=== PATIENT | female | born 1990 | race Caucasian/White ===

== ENCOUNTER → 2020-05-02 15:46 | Outpatient (CLI) | payer BC, SELFPAY ==
--- NOTE | ~2020-05-02 | US_ITS ---
EXAMINATION: US OB transvaginal DATE: 05/02/2020 16:12 INDICATION: . Uncertain dates. TECHNIQUE: Real-time transvaginal pelvic ultrasound was performed. COMPARISON: None. FINDINGS: The uterus measures 8.2 x 5.2 x 5.3 cm. There is an intrauterine gestational sac. A yolk sac is ident ified. The crown rump length measures 0.4 cm, which correlates with an estimated gestational a ge of 6 weeks and 0 day(s) (+/-) 4 day(s). heart motion is identified measuring 126 beats per m inute (bpm) by M-mode Doppler. The right ovary measures 2.6 x 2.2 x 1.3 cm. The left ovary measures 2 .8 x 1.5 x 2.3 cm. There is no free fluid in the pelvis. IMPRESSION: 1. Single living intrauterine gestation with estimated date of delivery of 12/26/2020. Reviewed, dictated and finalized at location A. IMPRESSION: 1. Single living intrauterine gestation with estimated date of delivery of 12/03.
== END ==
PROVIDERS: Visit Provider Nurse Practitioner
DX: Z36.87 Encounter for antenatal screening for uncertain dates (principal)
CPT/HCPCS: 76817

== ENCOUNTER → 2020-06-08 15:27 | Outpatient (CLI) | payer BC, SELFPAY ==
--- NOTE | ~2020-06-08 | XR_ITS ---
EXAMINATION: XR ankle RT min 3V DATE: 06/08/2020 15:57 INDICATION: Right ankle injury with pain, bruising and swelling TECHNIQUE: Anteroposterior, oblique, mortise, and lateral views of the right ankle were obtained. COMPARISON: None. FINDINGS: Alignment is normal. No fracture. Joint spaces are well maintained soft tissue swelling about the an kle more prominent medially. Likely ankle joint effusion. IMPRESSION: 1. No osseous abnormality. Reviewed, dictated and finalized at location A. T COMBINE DRIVER IMPRESSION: 1. No osseous abnormality.
== END ==
PROVIDERS: PCP Family Medicine; Visit Provider Nurse Practitioner Family
DX: S99.911A Unspecified injury of right ankle, initial encounter (principal); X58.XXXA Exposure to other specified factors, initial encounter
CPT/HCPCS: 73610

== ENCOUNTER → 2020-07-25 15:18 | Outpatient (CLI) | payer BC, SELFPAY ==
--- NOTE | ~2020-07-25 | US_ITS ---
EXAMINATION: US OB >= 14 weeks Fetus DATE: 07/25/2020 16:02 INDICATION: survey TECHNIQUE: Multiple obstetric sonographic images performed. FINDINGS: No prior studies for comparison. There is a single living fetus in variable presentation. The placenta is posterior without placenta previa. Placental margin is 3.9 cm to the cervix. Amniotic fluid volume is normal. cardiac activity and movement is noted with a heart rate of 158 beats per minute. The following anatomy was identified as normal: 4 chamber heart cord insertion kidneys urinary bladder stomach spine diaphragm ventricles cisterna magna cerebellum The ventricular outflow tracts are not adequately visualized. There is a possible two-vessel cord. Re commend attention to these structures on subsequent studies. The following biometric data were obtained: BPD: 42mm corresponds to gestational age 18 weeks 5 days. Head circumference: 158 mm corresponds to gestational age 18 weeks 5 days. Abdominal circumference: 128 mm corresponds to gestational age 18 weeks 2 days. Femur length: 27 mm corresponds to gestational age 18 weeks 2 days. Head circumference to abdominal circumference ratio: 1.23 (normal range for expected gestational age is 1.09-1.27). Estimated weight: 238 grams +/- 36 grams using Hadlock method. IMPRESSION: 1: Single living intrauterine with an estimated gestational age of 18weeks 0days by initial ultrasound measurements, with an EDC of 12/26/2020 in variable presentation. 2. survey limited for evaluation of outflow tracts. Possible two-vessel cord. Recommend attent ion to these structures on subsequent study. Otherwise, unremarkable survey.. 3: Low-lying posterior placenta measures 3.9 cm to the cervix. Reviewed, dictated and finalized at location A. ING CONSULTANT IMPRESSION: 1: Single living intrauterine with an estimated gestational age of 18 weeks 0days by initial ultrasound measurements, with an EDC of 12/26/2020 in angus iable presentation. 2. survey limited for evaluation of outflow tracts. Possible two-vessel cord. Recommend attention to these structures on subsequent study. Otherwise, u nremarkable survey.. 3: Low-lying posterior placenta measures 3.9 cm to the cervix.
== END ==
PROVIDERS: PCP Family Medicine; Visit Provider Obstetrics & Gynecology Gynecology
DX: O44.42 Low lying placenta NOS or without hemorrhage, second trimester (principal); Z3A.18 18 weeks gestation of pregnancy
CPT/HCPCS: 76805

== ENCOUNTER 2020-11-23 14:28 | Outpatient (RCR) | payer BC, SELFPAY ==
[2020-11-23 15:24] VITALS: BP 130/75; PULSE 70
== END 2020-12-15 10:21 | disposition home or self-care (01) ==
LOC: ANHOBOP 14:28
PROVIDERS: PCP Family Medicine; Visit Provider Obstetrics & Gynecology Gynecology
DX: O36.8930 Maternal care for other specified fetal problems, third trimester, not applicable or unspecified (principal); Q27.0 Congenital absence and hypoplasia of umbilical artery; Z3A.35 35 weeks gestation of pregnancy
CPT/HCPCS: 59025

== ENCOUNTER 2020-12-14 15:43 | Observation (INO) | payer BC, SELFPAY ==
[2020-12-14 17:38] LABS: Basophils Percent Auto 0.2 % (0.2-1.2); Eosinophils Absolute Auto 0.1 K/mm3 (0-0.3); Eosinophils Percent Auto 0.7 % (0-4.4); Hematocrit 37.5 % (37.0-47.0); Hemoglobin 12.7 g/dL (12.0-15.0); Immature Granulocyte Absolute 0.05 K/mm3 (0.00-0.031); Immature Granulocyte Percent A 0.5 % (0-0.5); Lymphocytes Absolute Auto 1.02 K/mm3 (0.9-3.2); Lymphocytes Percent Auto 11.2 % (18.3-44.2); Mean Corpuscular HGB Conc 33.9 g/dl (32-36); Mean Corpuscular Hemoglobin 30.5 pg (26-34); Mean Corpuscular Volume 89.9 fl (80-100); Mean Platelet Volume 11.7 fl (7.4-10.4); Monocytes Absolute Auto 0.7 K/mm3 (0.1-0.6); Monocytes Percent Auto 7.2 % (2.6-8.5); Neutrophils Absolute Auto 7.3 K/mm3 (1.3-6.7); Neutrophils Percent Auto 80.2 % (45.5-73.1); Platelet Count Result 178 k/mm3 (150-375); Red Blood Count 4.17 M/mm3 (4.2-5.4); Red Cell Distribution Width 12.8 % (11.5-14.5); White Blood Count 9.1 K/mm3 (4.5-10.0)
[2020-12-14 17:45] VITALS: BP 138/87; PULSE 78
[2020-12-14 17:48] LABS: Alanine Aminotransferase 17 U/L (4-35); Albumin Level 3.6 g/dL (3.5-5.1); Alkaline Phosphatase 130 U/L (38-126); Anion Gap 3 mmol/L (8-16); Aspartate Amino Transferase 25 U/L (14-36); Bilirubin,Total 0.1 mg/dL (0.2-1.3); Blood Urea Nitrogen 13 mg/dL (7-17); Calcium 9.7 mg/dL (8.4-10.2); Carbon Dioxide 23 mmol/L (22-30); Chloride 109 mmol/L (98-107); Estimated Glomerular Filt Rate > 60; Glucose 87 mg/dL (65-105); Potassium 4.2 mmol/L (3.4-5.0); Sodium 135 mmol/L (137-145); Uric Acid 5.7 mg/dL (2.5-7.5)
[2020-12-14 18:00] VITALS: BP 143/85; PULSE 69
--- NOTE | 2020-12-18 08:35 | PM.OBTRLD ---
OB - Triage/Final Diagnosis Visit Information Reason for evaluation: threatened labor Comments/Additional reasons for admission: I have assessed the risk for this patient, Meenakshi Crews, and determined that she would benefit from observation care. Evaluation Laboratory results: Laboratory Tests 12/14/20 12/14/20 17:31 17:31 WBC 9.1 RBC 4.17 L Hgb 12.7 Hct 37.5 MCV 89.9 MCH 30.5 MCHC 33.9 RDW 12.8 Plt Count 178 MPV 11.7 H Immature Gran % (Auto) 0.5 Neut % (Auto) 80.2 H Lymph % (Auto) 11.2 L [place] % (Auto) 7.2 Eos % (Auto) 0.7 Baso % (Auto) 0.2 Lymph # (Auto) 1.02 [place] # (Auto) 0.7 H Eos # (Auto) 0.1 Baso # (Auto) 0.0 Abs Immat Gran (auto) 0.05 H Absolute Neuts (auto) 7.3 H Absolute Nucleated RBC 0.0 Nucleated RBC % 0.0 Sodium 135 L Potassium 4.2 Chloride 109 H Carbon Dioxide 23 Anion Gap 3 L BUN 13 Creatinine 0.70 Estim Creat Clear Calc Not Reportable Estimated GFR > 60 Glucose 87 Uric Acid 5.7 Calcium 9.7 Total Bilirubin 0.1 L AST 25 ALT 17 Alkaline Phosphatase 130 H Total Protein 7.0 Albumin 3.6
== END 2020-12-14 18:20 | disposition home or self-care (01) ==
PROVIDERS: Admitting Provider Obstetrics & Gynecology Gynecology; PCP Family Medicine; Visit Provider Obstetrics & Gynecology Gynecology
DX: O47.9 False labor, unspecified (principal); Z3A.00 Weeks of gestation of pregnancy not specified
CPT/HCPCS: 36415; 80053; 84550; 85025; G0378; G0379

== ENCOUNTER 2020-12-15 02:50 | Inpatient (IN) | payer BC, SELFPAY ==
[2020-12-15] VITALS (157 sets, daily range): BP systolic 112–171; BP diastolic 72–119; PULSE 65–190; RESP 16–18; TEMP 36.6–37.2; O2SAT 96–100; BMI 37.3
[2020-12-15 03:47] LABS: Basophils Percent Auto 0.1 % (0.2-1.2); Eosinophils Absolute Auto 0.1 K/mm3 (0-0.3); Eosinophils Percent Auto 0.4 % (0-4.4); Hematocrit 40.4 % (37.0-47.0); Hemoglobin 13.7 g/dL (12.0-15.0); Immature Granulocyte Absolute 0.06 K/mm3 (0.00-0.031); Immature Granulocyte Percent A 0.5 % (0-0.5); Lymphocytes Absolute Auto 0.97 K/mm3 (0.9-3.2); Lymphocytes Percent Auto 7.9 % (18.3-44.2); Mean Corpuscular HGB Conc 33.9 g/dl (32-36); Mean Corpuscular Hemoglobin 30.6 pg (26-34); Mean Corpuscular Volume 90.4 fl (80-100); Mean Platelet Volume 12.5 fl (7.4-10.4); Monocytes Absolute Auto 0.7 K/mm3 (0.1-0.6); Neutrophils Absolute Auto 10.4 K/mm3 (1.3-6.7); Neutrophils Percent Auto 85.1 % (45.5-73.1); Platelet Count Result 183 k/mm3 (150-375); Red Blood Count 4.47 M/mm3 (4.2-5.4); Red Cell Distribution Width 12.7 % (11.5-14.5); White Blood Count 12.2 K/mm3 (4.5-10.0)
--- NOTE | 2020-12-15 04:15 | LDADM ---
This patient, Meenakshi Crews, was admitted to Labor/Delivery/Recovery 105 on 12/15/20 at 02:50. Plans for labor, pain management and were discussed with patient. Patient/family oriented to hospital policies and general routines including ID bracelet, bed and alarms, visiting hours, pain management, procedures, bathroom and other care routines, personal items, smoking policy, room service/diet and guest tray routines, infant security routines, and visiting hours. Patient/Family are encouraged to report perceived risks to care and to ask questions if they do not understand what they are told or what they should do. See OBIX for further documentation.
--- NOTE | 2020-12-15 04:20 | WPDANESEPP ---
Anes - Eval Pre Procedure Procedure: Labor epidural Date/Time: 12/15/20 04:20 Surgeon: deborah Preop Diagnosis: pain during labor Pre Op Diagnosis: Contractions Patient Data Age: 30 Gender: F Height: Weight: Allergies Allergy/AdvReac Type Severity Reaction Status Date / Time amoxicillin Allergy Unknown Hives Verified 11/28/20 14:30 Home Medications Medication Instructions Recorded Confirmed Type buspirone 10 mg tablet 10 mg PO BID #60 tablet 09/24/20 12/15/20 Rx Gummies 2 tablet PO HS 11/23/20 12/15/20 History ergocalciferol (vitamin D2) 50,000 unit PO WEEKLY 11/23/20 12/15/20 History Laboratory Tests 12/15/20 12/15/20 03:41 03:41 WBC 12.2 K/mm3 H K/mm3 (4.5-10.0) RBC 4.47 M/mm3 M/mm3 (4.2-5.4) Hgb 13.7 g/dL g/dL (12.0-15.0) Hct 40.4 % % (37.0-47.0) MCV 90.4 fl fl (80-100) MCH 30.6 pg pg (26-34) MCHC 33.9 g/dl g/dl (32-36) RDW 12.7 % % (11.5-14.5) Plt Count 183 k/mm3 k/mm3 (150-375) MPV 12.5 fl H fl (7.4-10.4) Immature Gran % (Auto) 0.5 % % (0-0.5) Neut % (Auto) 85.1 % H % (45.5-73.1) Lymph % (Auto) 7.9 % L % (18.3-44.2) [place] % (Auto) 6.0 % % (2.6-8.5) Eos % (Auto) 0.4 % % (0-4.4) Baso % (Auto) 0.1 % L % (0.2-1.2) Lymph # (Auto) 0.97 K/mm3 K/mm3 (0.9-3.2) [place] # (Auto) 0.7 K/mm3 H K/mm3 (0.1-0.6) Eos # (Auto) 0.1 K/mm3 K/mm3 (0-0.3) Baso # (Auto) 0.0 K/mm3 K/mm3 (0.0-0.1) Abs Immat Gran (auto) 0.06 K/mm3 H K/mm3 (0.00-0.031) Absolute Neuts (auto) 10.4 K/mm3 H K/mm3 (1.3-6.7) Absolute Nucleated RBC 0.0 K/mm3 K/mm3 (0.0-0.012) Nucleated RBC % 0.0 % % (0.0-0.2) RPR Pending Patient hx anesthesia problems: none Family hx anesthesia problems: none PMFSH Family History Family History (Updated 11/28/20 @ 14:32 by Loida Warren RN) Father Hypertension Social History Social History Smoking status: Never smoker Alcohol intake: current Substance use: never Gender identity (if verbalized by the patient): Female Spiritual care concerns: No Exam Day of Procedure 12/15/20 04:20
--- NOTE | 2020-12-15 09:29 | WPDOBADMIT ---
Obstetrics - Admit Note Admission Note: AROM clear fluid 5-/-1 vertex @0741. record reviewed. No pertinent additions to the history and/or any subsequent changes in the physical findings that are not consistent with the expected course of the were found. Additions to the history and/or subsequent changes in the physical findings follow. None.
[2020-12-15 12:33] LABS: Rapid Plasma Reagin Non-Reactive (NonReactive)
--- NOTE | 2020-12-15 12:35 | PM.OBPRVD ---
OB - Delivery Note Procedure Delivery date: 12/15/20 Procedure: Intrapartal events: None Delivery augmentation: rupture of membranes Delivery monitor: external FHT and external uterine Route of delivery: Laceration Description: None Quantitative Blood Loss (ml): 160 Anesthesia type: Epidural Disposition: floor [place] Baby Date of : 12/15/20 Time of : 12:21 Weeks of gestation at delivery: 38 Infant gender: Male Weight (pounds): 6 Weight (ounces): 9 presentation: vertex position: Left Occiput Posterior Placenta delivery description: Spontaneous cord vessel description: 3 Vessels, Nuchal Cord, Clamped/Cut and Around Body x1 score one minute: 7 score five minutes: 9
[2020-12-15] MEDS: OXYTOCIN 30 UNITS/NS 500 ML 30 UNITS/500 ML BAG 125 UNITS IV CONT (13:03)
[2020-12-15] MEDS: IBUPROFEN 600 MG TABLET PO (13:41)
[2020-12-15] MEDS: busPIRone HCL 10 MG TABLET PO ×2 (13:46→20:30)
[2020-12-15] MEDS: ACETAMINOPHEN 325 MG TABLET 650 MG PO (17:31)
[2020-12-15] MEDS: DOCUSATE SODIUM 100 MG CAPSULE PO (17:32)
[2020-12-16] MEDS: IBUPROFEN 600 MG TABLET PO (03:58)
[2020-12-16 04:00] VITALS: BP 134/85; PULSE 73; RESP 18; TEMP 36.4
[2020-12-16 05:56] LABS: Hematocrit 32.4 % (37.0-47.0); Hemoglobin 10.9 g/dL (12.0-15.0)
[2020-12-16 08:30] VITALS: BP 123/76; PULSE 65; RESP 16; TEMP 36.6
--- NOTE | 2020-12-16 10:00 | PC.NURSE ---
Patient viewed the discharge video Mother & Baby Care, The First Two Weeks . Patient was given the opportunity and encouraged to ask questions. Patient verbalized understanding of information shared and has been given the mother/baby guide for home reference.
--- NOTE | 2020-12-16 10:09 | WPDANLDPN2 ---
Anes-Prog Note L&D Date/Time: 12/16/20 10:09 Comfortable throughout: labor and delivery Neuraxial method: epidural Epidural/Spinal procedure site: clean & non-tender Neuro status: Neuro function grossly intact. Cardiovascular status: normal Respiratory status: normal Airway patency: baseline Mental status: baseline Post-Op hydration status: normal Vital Signs: Last Vital Signs Temp 36.6 C 12/16/20 08:30 Pulse 65 12/16/20 08:30 Resp 16 12/16/20 08:30 BP 123/76 12/16/20 08:30 Pulse Ox 99 12/15/20 15:30 Pain score (VAS): 08/13 I/O: Intake & Output 12/15/20 12/16/20 12/16/20 23:59 07:59 15:59 Intake Total 1300 600 Output Total 1000 450 Balance 300 150 Post-procedural complaints: none Patient feedback: Patient satisfied with anesthetic care.
--- NOTE | 2020-12-16 10:46 | PM.OBPNVD ---
OB - PN: Subj Subjective Date/time seen: 12/16/20 10:46 Patient comments: no complaints and pain well controlled baby status: doing well and bottle feeding well OB - PN: Obj Data Labs CBC & Chem 7: 12/16/20 04:04 Labs: Laboratory Results - last 24 hr 12/15/20 12/16/20 03:41 04:04 Hgb 10.9 L Hct 32.4 L RPR Non-reactive OB - PN A/P Plan day: 1 Plan: routine care, discharge home, follow up 6 weeks and other (Plans Loestrin 24 for bc) Time Spent With Patient Time: Total time spent is greater than 50% in coordination of care (as documented) at patient's floor/unit and/or counseling patient: Exam : Bimanual exam- vagina & uterus: other (Uterus firm, nt @U)
--- NOTE | 2020-12-16 10:48 | PM.OBDSVD ---
DS: Admitting Diagnosis Admitting Diagnosis Admitting Diagnosis: labor at term DS: Discharge Diagnosis Discharge Diagnosis (1) (normal spontaneous vaginal delivery): Code(s): O80 - Encounter for full-term uncomplicated delivery Status: Acute OB - DS: Summary OB Procedures : Ultrasound OB Procedures Intrapartum: Spontaneous Vag Delivery OB Procedures: : None Peripartum Data Infant Delivery Method: Natural Vaginal complications: none Status at Discharge Functional status at discharge: independent ambulation Overall status at discharge: patient is progressing back to baseline Time Spent with Patient Time attestation: Total time spent providing and/or coordinating discharge services: DS: Data Data Completed and Pending Labs on day of discharge: Labs from last 24 hours 12/16/20 12/15/20 04:04 03:41 Hgb 10.9 L Hct 32.4 L RPR Non-reactive Discharge Plan Discharge Attending physician on discharge: Gela Ro Discharging Clinician: Gela Ro Anticipated Discharge Date/Time: 12/16/20 10:48 Patient Disposition: Home, Self-Care Activity: may shower and pelvic rest Diet: regular Patient Instructions: Antibiotic Form Stand Alone Forms: General Discharge Information Follow-up/Referrals: Gela Ro MD [Physician] - 6 Weeks Discharge Medications: New norethindrone-e.estradiol-iron [Minastrin 24 Fe] 1 mg-20 mcg(24) /75 mg (4) tablet,chewable 1 tablet PO DAILY Qty: 3 RF: 1 Continued ergocalciferol (vitamin D2) 1,250 mcg (50,000 unit) capsule 50,000 unit PO WEEKLY RF: 0 buspirone 10 mg tablet 10 mg PO BID Qty: 60 RF: 3 Discontinued Gummies 400 mcg-35 mg- 25 mg-5 mg Tablet,Chewable 2 tablet PO HS RF: 0 Date of admission: 12/15/20 02:50 Primary Care Provider: Ishan Mims Admitting Provider: Gela Ro Attending physician on admission: Gela Ro Condition: Stable
[2020-12-18 10:13] VITALS: BP 148/88; PULSE 92; RESP 20; TEMP 37.1; O2SAT 100
== END 2020-12-16 13:33 | disposition home or self-care (01) | DRG 807 ==
LOC: ANHLDR 03:42 → ANHOB2 14:53
PROVIDERS: Admitting Provider Obstetrics & Gynecology; PCP Family Medicine; Visit Provider Obstetrics & Gynecology Gynecology
DX: O69.81X0 Labor and delivery complicated by cord around neck, without compression, not applicable or unspecified (principal); Z37.0 Single live birth; Z3A.38 38 weeks gestation of pregnancy
CPT/HCPCS: 36415; 80053; 84550; 85014; 85018; 85025; 86592; 86850; 86900; 86901; A9270; G0378; G0379; J2590; J2795

== ENCOUNTER 2021-01-26 15:37 | Outpatient (CLI) | payer BC, SELFPAY ==
--- NOTE | ~2021-01-26 | US_ITS ---
EXAMINATION: US venous doppler UE DATE: 01/26/2021 16:42 INDICATION: Right upper limb pain. TECHNIQUE: Grayscale ultrasound images without and with compression and Doppler ultrasound images of the bilateral upper extremity veins were obtained. COMPARISON: None. FINDINGS: The visualized portions of the right internal jugular vein, subclavian vein, axillary vein, brachial veins, basilic vein, radial vein, and ulnar vein are patent. There is thrombus in right cephalic vein . The visualized portions of the left internal jugular vein, subclavian vein, axillary vein, brachial v eins, basilic vein, cephalic vein, radial vein, and ulnar vein are patent. IMPRESSION: 1. No deep venous thrombosis. 2. Thrombus in right cephalic vein, which is a superficial vein. Reviewed, dictated and finalized at location A.
== END 2021-01-26 15:38 | disposition home or self-care (01) ==
LOC: ANHIMG 15:38
PROVIDERS: PCP Family Medicine; Visit Provider Physician Assistant Medical
DX: M79.601 Pain in right arm (principal); I82.611 Acute embolism and thrombosis of superficial veins of right upper extremity
CPT/HCPCS: 93970

== ENCOUNTER 2021-07-03 06:49 | Emergency (ER) | payer BC, SELFPAY ==
--- NOTE | ~2021-07-03 | XR_ITS ---
EXAMINATION: XR chest 2V DATE: 07/03/2021 07:15 INDICATION: Left-sided chest pain with breathing TECHNIQUE: PA and lateral views of the chest were obtained. COMPARISON: None FINDINGS: The lungs are clear with no focal airspace opacities, pulmonary edema, pleural effusion or pneumothor ax. The cardiomediastinal silhouette is normal. Mild thoracic dextrocurvature with mild spondylosis. IMPRESSION: 1. No acute cardiopulmonary disease. Reviewed, dictated and finalized at location A. ITECTURE TECHNICIAN
--- NOTE | ~2021-07-03 | CT_ITS ---
EXAMINATION: CTA chest PE protocol EXAM DATE: 07/03/2021 09:25 INDICATION: Chest pain, elevated d dimer. TECHNIQUE: Spiral CTA of the chest (pulmonary arteries) was performed with 100 cc Omnipaque 350 intr avenous contrast injection. Images were acquired during the pulmonary arterial phase. Coronal maxi mum intensity projection 3D-reconstructions were created by the technologist on dedicated workstation . Axial, coronal and sagittal reformatted images were reviewed. The dose-length product (DLP) for t his examination was 448.85 mGy-cm. The exposure was tailored according to patient size (auto mA exp osure control), and iterative reconstruction (ASIR) was used as additional dose reduction technique. There is no prior study for comparison. FINDINGS: Pulmonary arteries are well opacified and without intraluminal filling defects. No thorac ic aortic dissection. The lungs are clear. There are no pleural or pericardial effusions. Trache obronchial tree is patent. There is no mediastinal, hilar or axillary lymphadenopathy. There is n o pneumothorax. Heart normal in size. No evidence of coronary arterial calcification. Upper abdo men is unremarkable. There is thoracic spondylosis without osteoblastic or osteolytic lesions ident ified. IMPRESSION: No acute cardiac pulmonary findings. Reviewed, dictated and finalized at location A. 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
[2021-07-03 06:56] VITALS: BP 155/100; PULSE 86; RESP 24; TEMP 36.2; O2SAT 100
--- NOTE | 2021-07-03 06:59 | ECG_ITS ---
Measurements Intervals [place] Rate: 83 P: 52 ID: [id number] QRS: 60 QRSD: 97 T: 39 QT: 374 QTc: 440 Interpretive Statements SINUS RHYTHM DELAYED PRECORDIAL R/S TRANSITION BORDERLINE ST-T WAVE ABNORMALITY- INFERIOR LEADS BASELINE ARTIFACT- I, II, AVR, AVF BORDERLINE ECG Electronically Signed On 07-03-2021 7:47:55 CONTROL OPERATOR FLOW COAT by Houston Acevedo D.O.
[2021-07-03 07:08] LABS: Basophils Percent Auto 0.2 % (0.2-1.2); Eosinophils Absolute Auto 0.1 K/mm3 (0-0.3); Eosinophils Percent Auto 2.5 % (0-4.4); Hematocrit 42.6 % (37.0-47.0); Hemoglobin 14.6 g/dL (12.0-15.0); Immature Granulocyte Absolute 0.03 K/mm3 (0.00-0.031); Immature Granulocyte Percent A 0.6 % (0-0.5); Lymphocytes Absolute Auto 1.32 K/mm3 (0.9-3.2); Lymphocytes Percent Auto 25.7 % (18.3-44.2); Mean Corpuscular HGB Conc 34.3 g/dl (32-36); Mean Corpuscular Volume 90.4 fl (80-100); Mean Platelet Volume 10.1 fl (7.4-10.4); Monocytes Absolute Auto 0.5 K/mm3 (0.1-0.6); Monocytes Percent Auto 9.7 % (2.6-8.5); Neutrophils Absolute Auto 3.1 K/mm3 (1.3-6.7); Neutrophils Percent Auto 61.3 % (45.5-73.1); Platelet Count Result 239 k/mm3 (150-375); Red Blood Count 4.71 M/mm3 (4.2-5.4); Red Cell Distribution Width 12.3 % (11.5-14.5); White Blood Count 5.1 K/mm3 (4.5-10.0)
[2021-07-03 07:22] LABS: Alanine Aminotransferase 25 U/L (4-35); Albumin Level 4.6 g/dL (3.5-5.1); Alkaline Phosphatase 42 U/L (38-126); Anion Gap 10 mmol/L (8-16); Aspartate Amino Transferase 29 U/L (14-36); Bilirubin,Total 0.5 mg/dL (0.2-1.3); Blood Urea Nitrogen 16 mg/dL (7-17); Calcium 9.1 mg/dL (8.4-10.2); Carbon Dioxide 24 mmol/L (22-30); Chloride 105 mmol/L (98-107); Estimated CRCL calculation 91 ml/min; Estimated Glomerular Filt Rate > 60; Glucose 73 mg/dL (65-110); Lipase 147 U/L (23-300); Potassium 3.7 mmol/L (3.4-5.0); Sodium 139 mmol/L (137-145)
[2021-07-03 07:33] LABS: Troponin I < 0.012 ng/mL (0.000-0.034)
[2021-07-03 07:57] LABS: INR 0.9; Partial Thromboplastin Time 24.1 SECONDS (22.3-36.8); Prothrombin Time 11.8 Seconds (11.1-14.7)
--- NOTE | 2021-07-03 08:13 | ED.GENADULT ---
HPI - General Adult General Chief complaint: Chest Pain Stated complaint: chest pain Time Seen by Provider: 07/03/21 07:09 Source: patient History of Present Illness HPI narrative: Patient is a 30 y/o female complaining of left sided chest pain starting yesterday. She describes her pain as a pressure and squeezing sensation. She rates her pain as 4/10. There is no pain radiation. She took Aspirin this morning, which did not help. She has no cough, fever or SOB. Related Data Home Medications Medication Instructions Recorded Confirmed ergocalciferol (vitamin D2) 50,000 unit PO WEEKLY 11/23/20 04/19/21 Allergies Allergy/AdvReac Type Severity Reaction Status Date / Time amoxicillin Allergy Unknown Hives Verified 07/03/21 06:59 Review of Systems Constitutional: Constitutional: Denies chills, Denies fever(s), Denies headache(s) and Denies weakness Eyes: Eyes: Denies blurry vision ENT: Denies headache(s) and Denies neck pain Cardiovascular: Cardiovascular: Denies chest pain and Denies dyspnea Respiratory: Respiratory: Denies cough and Denies dyspnea Gastrointestinal: Gastrointestinal: Denies abdominal pain, Denies diarrhea, Denies nausea and Denies vomiting Genitourinary: Genitourinary: Denies hematuria and Denies dysuria Musculoskeletal: Musculoskeletal: Denies back pain and Denies neck pain Neurologic: Denies headache(s) and Denies weakness PMFSH Past Medical History Medical History BMI 33.0-33.9,adult Family History Family History Father Hypertension Mother No problems noted. 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 Gender identity (if verbalized by the patient): Female Sexual Orientation (if Verbalized by the Patient): Straight or Heterosexual Spiritual care concerns: No Agree to blood products: Yes Exam Const: General: no acute distress and well developed Orientation/consciousness: oriented to person, oriented to place, oriented to time and patient oriented x3 HENMT: Head: normocephalic Ears: external ears normal General nose exam: Normal external nose present Eyes: General: appearance normal, both eyes and all related structures Conjunctivae: conjunctivae normal Neck: Neck: normal visual inspection and full ROM Chest: Chest palpation & inspection: normal inspection of the chest and no tenderness Resp: Effort & Inspection: normal respiratory effort Auscultation: clear to auscultation bilaterally Cardio: Rate: regular rate Rhythm: regular rhythm GI: GI Palp: No abdominal tenderness and Yes Soft to palpation Skin: General skin exam: normal color and turgor normal Neuro: General: oriented to person, oriented to place, oriented to time and patient oriented x3 Cognition (Neuro): normal cognition Extrem: General: normal to inspection, full ROM and no pedal edema Psych: Appearance: grossly normal Mental Status: mental status grossly normal Affect: normal affect Course Consultations Consultation #1: Discussed with Dr. Wilkinson, who agrees with plan for discharge and will follow. Date: 07/03/21 Time: 11:18 Vital Signs Vital signs: Vital Signs Temperature 36.2 C L 07/03/21 06:56 Pulse Rate 86 07/03/21 06:56 Respiratory Rate 24 H 07/03/21 06:56 Blood Pressure 155/100 H 07/03/21 06:56 Pulse Oximetry 100 07/03/21 06:56 Temperature 36.2 C L 07/03/21 06:56 Pulse Rate 86 07/03/21 11:38 Respiratory Rate 17 07/03/21 11:38 Blood Pressure 146/96 H 07/03/21 11:38 Pulse Oximetry 100 07/03/21 11:38 Med
[2021-07-03 08:45] LABS: D Dimer 1.56 ug/mL (<0.48)
[2021-07-03 09:10] LABS: Add Urine Microscopic? YES; Appearance Urine Cloudy (Clear); Bacteria Urine Trace /hpf; Bilirubin Urine Negative (Negative); Blood Urine 1+ (Negative); Color Urine Yellow (Yellow); Glucose Urine UA Negative (Negative); Ketones Urine Negative (Negative); Leukocyte Esterase Ur 2+ LEU/UL (Negative); Mucus Urine Few /lpf; Nitrate Urine Negative (Negative); Protein Urine Negative (Negative); Specific Grav Ur 1.026 (1.001-1.035); Squamous Epithelial Cell Urine Many /hpf (Few); Urobilinogen Urine Negative mg/dL (<2.0)
[2021-07-03 10:33] LABS: Troponin I < 0.012 ng/mL (0.000-0.034)
[2021-07-03 11:38] VITALS: BP 146/96; PULSE 86; RESP 17; O2SAT 100
== END 2021-07-03 11:47 | disposition home or self-care (01) ==
PROVIDERS: Emergency Medicine; Emergency Provider Emergency Medicine; PCP Family Medicine
DX: R07.9 Chest pain, unspecified (principal)
CPT/HCPCS: 36415; 71046; 71275; 80053; 81001; 81025; 83690; 84484; 85025; 85380; 85610; 85730; 87086; 87088; 93005; 99284; Q9967

== ENCOUNTER 2024-09-30 02:48 | Day surgery (SDC) | payer BC, SELFPAY ==
[2024-09-21 12:11] VITALS: BMI 22.7
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
--- OUTSIDE RECORDS SUMMARY | 2024-09-30 02:51 | XMS_ITS | Clinical Summary ---
Author Organization [facility] Address [address] [place] [address] Phone Care Team Providers Care Poultry Farm Manager Name Role Phone Unavailable Primary Care Provider Unavailabl e Social History Tobacco Use Types Packs/Day Years Used Date Smoking Tobacco: Never Assessed Comments Unknown Sex and Gender Information Value Date Recorded Sex Assigned at Not on file Legal Sex Female 11:20 AM DESK MAKER Gender Identity Not on file Sexual Orientation Not on file Plan of Treatment Health Maintenance Due Date Last Done Comments DTAP/TDAP/TD VACCINES (1 - Tdap) 11/04/2007 HEPATITIS B VACCINES (1 of 3 - 19+ 3-dose series) 11/04/2007 CERVICAL CANCER SCREENING 05/22/2020 05/22/2017 INFLUENZA VACCINE (#1) 2024 HPV VACCINES Aged Out No longer eligi ble based on patient's age to complete this topic PNEUMOCOCCAL VACCINE 0-64 YEARS Aged Out No longer eligible based on patient's age to complete this topic Insurance [facility] BLUE ACCESS/TRUE BLUE PPO
--- OUTSIDE RECORDS SUMMARY | 2024-09-30 02:51 | XMS_ITS | Clinical Summary ---
Author Organization [facility] Address [address] [place] [address] Care Team Providers Care Tableau Analyst Name Role Phone Ishan Mims MD Primary Care Provider [phone] Source Comments [facility],non-owned Affiliates and Associated Physician Practices is amultiple site organization consisting of ambulatory clinics and hospital sitesin [place], [place], [place] and [place]. This disclosure is being madepursuant to the Care Everywhere program and may not contain all information available regarding this patient. Last updated 18.[facility] Allergies Active Allergy Reactions Criticality Noted Date Comments Amoxicillin Urticaria Medium 04/13/2018 Medications * Be aware that medications may not be up to date on this document. Alwaysverify current medications with the patient. Medication Sig Dispensed Refills Start Date End Date Status BusPIRone HCl (BUSPAR PO) Active Active Problems No known active problems Social History Tobacco Use Types Packs/Day Years Used Date Smoking Tobacco: Never Smokeless Tobacco: Never Alcohol Use Standard Drinks/Week Comments Yes 0 (1 standard drink = 0.6 oz pur e alcohol) occasional Sex and Gender Information Value Date Recorded Sex Assigned at Not on file Gender Identity Female 04/13/2018 7:02 PM CDT Sexual Orientation Not on file Last Filed Vital Signs Vital Sign Reading Time Taken Comments Blood Pressure 118/72 06/28/2019 3:44 PM SOFT WORK WRAPPER EXAMINER Pulse 102 06/28/2019 3:44 PM SOFT WORK WRAPPER EXAMINER Temperature 37 C (98.6 F) 06/28/2019 3:44 PM SOFT WORK WRAPPER EXAMINER Respiratory Rate 16 06/28/2019 3:44 PM SOFT WORK WRAPPER EXAMINER Oxygen Saturation 98% 06/28/2019 3:44 PM SOFT WORK WRAPPER EXAMINER Inhaled Oxygen Concentration - - Weight 72.6 kg (160 lb) 06/28/2019 3:44 PM SOFT WORK WRAPPER EXAMINER Height 167.6 cm (5' 6 ) 06/28/2019 3:44 PM SOFT WORK WRAPPER EXAMINER Body Mass Index 25.82 06/28/2019 3:44 PM SOFT WORK WRAPPER EXAMINER Plan of Treatment Health Maintenance Due Date Last Done Comments PAP SMEAR 1988 HIV SCREENING 11/04/2003 HEPATITIS C SCREENING 10/30/2006 DTAP/TDAP/TD VACCINES (1 - Tdap) 11/04/2007 HEPATITIS B VACCINE (1 of 3 - 19+ 3-dose series) 11/04/2007 COVID-19 VACCINE (1 - 2023-2 5 season) 2024 INFLUENZA VACCINE (#1) 2024 DEPRESSION SCREENING 08/04/2024 ZOSTER VACCINE (1 of 2) 2038 HIB VACCINE Aged Out No longer eligi ble based on patient's age to complete this topic HPV VACCINE Aged Out No longer eligi ble based on patient's age to complete this topic MENINGOCOCCAL (Group B) VACCINE Aged Out No longer eligible based on patient's age to complete this topic MENINGOCOCCAL VACCINE Aged Out No angel grzegorz eligible based on patient's age to complete this topic PNEUMOCOCCAL VACCINE Aged Out No long er eligible based on patient's age to complete this topic Care Teams Tableau Analyst Relationship Specialty Start Date End Date Ishan Mims MD [address] [place] [address] PCP - General Family Medicine 04/13/18
--- OUTSIDE RECORDS SUMMARY | 2024-09-30 02:51 | XMS_ITS | Referral Summary ---
Author Organization [facility] Address [address] [place] [address] Care Team Providers Care Protective Services Social Worker Name Role Phone Ishan Mims MD Primary Care Provider [phone] Source Comments [facility],non-owned Affiliates and Associated Physician Practices is amultiple site organization consisting of ambulatory clinics and hospital sitesin [place], [place], [place] and [place]. This disclosure is being madepursuant to the Care Everywhere program and may not contain all information available regarding this patient. Last updated 18.[facility] Allergies Active Allergy Reactions Criticality Noted Date [...] Comments Blood Pressure 118/72 06/28/2019 3:44 PM PURCHASING ADMINISTRATIVE ASSISTANT Pulse 102 06/28/2019 3:44 PM PURCHASING ADMINISTRATIVE ASSISTANT Temperature 37 C (98.6 F) 06/28/2019 3:44 PM PURCHASING ADMINISTRATIVE ASSISTANT Respiratory Rate 16 06/28/2019 3:44 PM PURCHASING ADMINISTRATIVE ASSISTANT Oxygen Saturation 98% 06/28/2019 3:44 PM PURCHASING ADMINISTRATIVE ASSISTANT Inhaled Oxygen Concentration - - Weight 72.6 kg (160 lb) 06/28/2019 3:44 PM PURCHASING ADMINISTRATIVE ASSISTANT Height 167.6 cm (5' 6 ) 06/28/2019 3:44 PM PURCHASING ADMINISTRATIVE ASSISTANT Body Mass Index 25.82 06/28/2019 3:44 PM PURCHASING ADMINISTRATIVE ASSISTANT Plan of Treatment Not on file Care Teams Protective Services Social Worker Relationship Specialty Start Date End Date Ishan Mims MD [address] [place] [address] PCP - General Family Medicine 04/13/18
--- OUTSIDE RECORDS SUMMARY | 2024-09-30 02:51 | XMS_ITS | Continuity of Care Document ---
Author Organization [facility] Address [address] [facility] [address] [place] [address] Phone Care Team Providers Care Major Account Representative Name Role Phone Mariel Langston Unavailable Unavailable Advance Directives Directive Yes / No Effective Date File Name No Information Encounters Encounter Description Practice Location Reason(s) For Visit Diagnoses Date Provider Providers Copied on Encounter [facility], [address], [place], [place], [id number], [place] tel:[phone] [facility] No Information [address] [facility] , [address], [place], [address], [place]. tel:[phone] Family History Family Member Type Diagnosis Age At Onset No Information Payers Payer name Insurance type Covered republican ID Authoriza tion(s) No Information Social History [...]
--- OUTSIDE RECORDS SUMMARY | 2024-09-30 02:51 | XMS_ITS | Patient Health Summary ---
Author Organization [facility] Address [address] [place] [address] Care Team Providers Care Die Maker Apprentice Name Role Phone Ishan Mims MD Primary Care Provider Note from [facility] [place],non-owned Affiliates and Associated Physician Practices is amultiple site organization consisting of ambulatory clinics and hospital sitesin [place], [place], [place] and [place]. This disclosure is being madepursuant to the Care Everywhere program and may not contain all information available regarding this patient. Last updated 18.[facility] [email or web address] Allergies * Amoxicillin(Urticaria) -Medium Criticality Medications * Be aware that medications may not be up to date on this document. Alwaysverify current medications with the patient. * BusPIRone HCl (BUSPAR PO) Active Problems No known active problems Social [...] Comments Blood Pressure 118/72 06/28/2019 3:44 PM HORTICULTURAL TECHNICAL OFFICER Pulse 102 06/28/2019 3:44 PM HORTICULTURAL TECHNICAL OFFICER Temperature 37 C (98.6 F) 06/28/2019 3:44 PM HORTICULTURAL TECHNICAL OFFICER Respiratory Rate 16 06/28/2019 3:44 PM HORTICULTURAL TECHNICAL OFFICER Oxygen Saturation 98% 06/28/2019 3:44 PM HORTICULTURAL TECHNICAL OFFICER Inhaled Oxygen Concentration - - Weight 72.6 kg (160 lb) 06/28/2019 3:44 PM HORTICULTURAL TECHNICAL OFFICER Height 167.6 cm (5' 6 ) 06/28/2019 3:44 PM HORTICULTURAL TECHNICAL OFFICER Body Mass Index 25.82 06/28/2019 3:44 PM HORTICULTURAL TECHNICAL OFFICER Procedures * DERMATOPATHOLOGY(Performed 02/12/2021) * INFLUENZA A+B - POINT OF CARE (AMB)(Performed 06/28/2019) Performed for Acute URI * INFLUENZA A+B - POINT OF CARE (AMB)(Performed 04/16/2019) Performed for Acute viral syndrome Results * DERMATOPATHOLOGY (02/12/2021 3:33 AM CDT) Case Report Dermatopathology Report Case: [id number] Authorizing Provider: Ishan Mims MD Collected: 02/12/2021 03:33 AM Ordering Location: [facility] DermPath Lab Received: 02/13/2021 02:53 PM Pathologist: Karo Butterfield MD Specimens: A) - Skin, left thigh B) - Skin, left upper arm 1:58 PM CDT DERMATOPATHOLOGY LABORATORY Final Diagnosis Specimen A. SKIN, left thigh: DERMATOFIBROMA (D23.9) Specimen B. SKIN, left upper arm: COMPOUND MELANOCYTIC NEVUS, IRRITATED (D22.62) PRESENT AT MARGIN 1 1:58 PM CDT DERMATOPATHOLOGY LABORATORY Clinical History A-B: Lesion changes 1:58 PM CDT DERMATOPATHOLOGY LABORATORY Gross Description Specimen A: Received is one formalin filled container labeled with the patient's name and designated left thigh. The specimen consists of a shave biopsy measuring 5x4x1 mm. Jar 0. Specimen B: Received is one formalin filled container labeled with the patient's name and designated left upper arm. The specimen consists of a shave biopsy measuring 4x3x1 mm. Jar 0. 1:58 PM CDT DERMATOPATHOLOGY LABORATORY Microscopic Description Specimen A. SKIN, left thigh: There is epidermal hyperplasia. Within the dermis, there are fibrohistiocytic cells in haphazard array among coarse collagen bundles. Specimen B. SKIN, left upper arm: There is melanin pigment in the stratum corneum. There are nests of melanocytes at the dermal-epidermal junction and within the dermis. This lesion is present at the margin of the specimen. COMMENT: Since the lesion is present at the margins of the specimen these histologic features may not be videotape sales representative of the entire lesion. Clinicopathologic correlation is recommended. 1 1:58 PM CDT DERMATOPATHOLOGY LABORATORY Disclaimer An external and internal positive and negative controls are appropriate for the histochemical, immunohistochemical and immunofluorescence stain(s) in this case (if any), except where stated explicitly. The performance characteristics of the stain(s) cited in this report were developed and its performance characteristic determined by the Dermatopathology Laboratory at [facility], directed by Dr. Nemesio Varma. These tests need not be, and therefore are not, approved by the [place] Food and Drug Administration. The tests are used for clinical purposes. Billing Codes Specimen Charges Stain Charges 43160 06753 1 1 1 1:58 PM CDT DERMATOPATHOLOGY LABORATORY Embedded Images 1 1:58 PM CDT DERMATOPATHOLOGY LABORATORY Pathology/Cytology TISSUE SPECIMEN FROM SKIN / Unknown 02/12/2021 3:33 AM CDT 02/13/2021 2:53 PM CDT Miscellaneous samples (specimen) TISSUE SPECIMEN FROM SKIN / Unknown 02/12/2021 3:33 AM CDT 02/13/2021 2:53 PM CDT Ishan Mims MD LAB - PATHOLOGY/CYTO LOGY ORDERABLES DERMATOPATHOLOGY LABORATORY [facility] Department of Dermatology [address], [address] [phone] * INFLUENZA A+B - POINT OF CARE (AMB) (06/28/2019) Only the most recent of2 resultswithin the time period is included. Influenza A Antigen Rapid Negative Negative Influenza B Antigen Rapid Negative Negative Influenza Internal Control present NEGATIVE - POSITIVE Influenza Lot Number [id number] Influenza Expiration Date 11/11/2020 Other NASOPHARYNGEAL SWAB / Unknown 06/28/2019 Kinsey Carmona APRN-CHEMICAL TREATMENT OPERATOR LAB - POINT OF CARE ORDERABLES Care Teams Die Maker Apprentice Relationship Specialty Start Date End Date Ishan Mims MD [address] [place] [address] PCP - General Family Medicine 04/13/18
--- OUTSIDE RECORDS SUMMARY | 2024-09-30 02:51 | XMS_ITS | Encounter Summary ---
Author Organization [facility] Address [address] [place] [address] Care Team Providers Care Quality Director Name Role Phone Ishan Mims MD Primary Care Provider [phone] Encounter Details Date Type Department Care Team (Late st Contact Info) Description 02/13/2021 Lab Requisition [facility] DermPath Lab [address] [place] [address] Ishan Mims MD [address] [place] [address] Social History Tobacco Use Types Packs/Day Years Used Date Smoking Tobacco: Never Assessed Sex and Gender Information Value Date Recorded Sex Assigned at Not on file Gender Identity Female 04/13/2018 7:02 PM CDT Sexual Orientation Not on file documented as of this encounter Plan of Treatment Not on file documented as of this encounter Procedures Procedure Name Priority Date/Time Associated Diagnosis Comments DERMATOPATHOLOGY Routine 02/12/2021 3:33 AM CDT documented in this encounter Results * DERMATOPATHOLOGY (02/12/2021 3:33 AM CDT) Case Report Dermatopathology Report Case: [id number] Authorizing Provider: Ishan Mims MD Collected: 02/12/2021 03:33 AM Ordering Location: [facility] DermPath Lab Received: 02/13/2021 02:53 PM Pathologist: Karo Butterfield MD Specimens: A) - Skin, left thigh B) - Skin, left upper arm 1:58 PM CDT DERMATOPATHOLOGY LABORATORY Final Diagnosis Specimen A. SKIN, left thigh: DERMATOFIBROMA (D23.9) Specimen B. SKIN, left upper arm: COMPOUND MELANOCYTIC NEVUS, IRRITATED (D22.62) PRESENT AT MARGIN 1 1:58 PM [facility] DERMATOPATHOLOGY LABORATORY Clinical History A-B: Lesion changes 1:58 PM [facility] DERMATOPATHOLOGY LABORATORY Gross Description Specimen A: Received is one formalin filled container labeled with the patient's name and designated left thigh. The specimen consists of a shave biopsy measuring 5x4x1 mm. Jar 0. Specimen B: Received is one formalin filled container labeled with the patient's name and designated left upper arm. The specimen consists of a shave biopsy measuring 4x3x1 mm. Jar 0. 1 1:58 PM [facility] DERMATOPATHOLOGY LABORATORY Microscopic Description Specimen A. SKIN, [...] specimen these histologic features may not be medical billing representative of the entire lesion. Clinicopathologic correlation is recommended. 1:58 PM [facility] DERMATOPATHOLOGY LABORATORY Disclaimer An external and internal positive and negative controls are appropriate for the histochemical, immunohistochemical and immunofluorescence stain(s) in this case (if any), except where stated explicitly. The performance characteristics of the stain(s) cited in this report were developed and its performance characteristic determined by the Dermatopathology Laboratory at [facility], directed by Dr. Nemesio Varma. These tests need not be, and therefore are not, approved by the [place] Food and Drug Administration. The tests are used for clinical purposes. Billing Codes Specimen Charges Stain Charges 41493 49252 1 1 1 1:58 PM T DERMATOPATHOLOGY LABORATORY Embedded Images 1:58 PM [facility] DERMATOPATHOLOGY LABORATORY Pathology/Cytology TISSUE SPECIMEN FROM SKIN / Unknown 02/12/2021 3:33 AM CDT 02/13/2021 2:53 PM CDT Miscellaneous samples (specimen) TISSUE SPECIMEN FROM SKIN / Unknown 02/12/2021 3:33 AM CDT 02/13/2021 2:53 PM CDT Ishan Mims MD LAB - PATHOLOGY/CYTO LOGY ORDERABLES DERMATOPATHOLOGY LABORATORY [facility] - Department of Dermatology [facility] [address] [place] [address], [address] [phone] documented in this encounter Visit Diagnoses Not on filedocumented in this encounter Care Teams Quality Director Relationship Specialty Start Date End Date Ishan Mims MD [address] [place] [address] PCP - General Family Medicine 04/13/18 documented as of this encounter
[2024-09-30 07:39] VITALS: BP 119/79; PULSE 75; RESP 20; TEMP 36.2; O2SAT 100; BMI 22.4
--- NOTE | 2024-09-30 07:47 | WPDHPUPDATE1 ---
History and Physical Update Update Date/Time: 09/30/24 07:47 History and Physical has been reviewed, including an updated exam of the patient. There are NO changes in the patient's condition. Risks, benefits, and alternatives have been discussed and questions answered. Patient agrees to proceed with procedure.
--- NOTE | 2024-09-30 07:47 | WPDANESEPPF ---
Anes - Initial Pre Proc Eval Procedure: Operation Date: 09/30/24 08:30 Proposed Procedures p Colonoscopy with hemorrhoid banding - Angel Dodge DO Date/Time: 09/30/24 07:47 Surgeon: Angel Dodge DO Pre Op Diagnosis: rectal bleeding Patient Data Age: 33 Gender: F Height: 1.68 m Weight: 63 kg Last Vital Signs Temp 97.1 F L 09/30/24 07:39 Pulse 75 09/30/24 07:39 Resp 20 09/30/24 07:39 BP 119/79 09/30/24 07:39 Pulse Ox 100 09/30/24 07:39 O2 Del Method Room Air 09/30/24 07:39 Allergies Allergy/AdvReac Type Severity Reaction Status Date / Time amoxicillin Allergy Unknown Hives Verified 09/30/24 07:36 Home Medications ?Medication ?Instructions ?Recorded ?Confirmed ?Type bupropion HCl 300 mg 24 hr tablet, 300 mg PO QAM #90 tabs 05/25/24 09/30/24 Rx extended release (Wellbutrin XL) tirzepatide (weight loss) 15 15 mg (0.5 mL) subcut WEEKLY #6 mL 05/31/24 09/30/24 Rx mg/0.5 mL subcutaneous pen injector (Zepbound) fluoxetine 40 mg capsule 40 mg PO DAILY #30 caps 07/29/24 09/30/24 Rx Patient hx anesthesia problems: none Family hx anesthesia problems: none Results Review: All pre-operative results and documents have been reviewed as part of the pre-operative evaluation. [facility] Past Medical History Medical History BMI 30.0-30.9,adult BMI 31.0-31.9,adult Low libido Tinea pedis BMI 32.0-32.9,adult BMI 33.0-33.9,adult Pain in right arm BMI 34.0-34.9,adult (normal spontaneous vaginal delivery) IUP (intrauterine ), incidental Right ankle injury Fatigue Conjunctivitis Otitis media Surgical History Surgical History Hx of LASIK 2022 Family History Family History Father Hypertension Mother COVID-19 Sibling Hypertension COVID-19 Social History Social History Smoking status: Never smoker Second hand tobacco smoke exposure: No Alcohol intake: current Drinks per week: 4 Substance use: never Substance use type: does not use Do You Feel Safe in your Home?: Yes Lack of Transportation: No Lack of Food: Never True Current Housing: I Have Housing Concerned About Future Housing: No Difficulty Paying Gas/Electric Bills: No Difficulty Paying for Meds: No Currently Unemployed: No Education: High School Diploma/GED Difficulty w/ Childcare or Family Care: No Living arrangements: with family Additional living arrangements comments: boyfriend and son Occupation/Education: occupation 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 Gender identity (if verbalized by the patient): Female Sexual Orientation (if Verbalized by the Patient): Straight or Heterosexual Spiritual care concerns: No Agree to blood products: Yes Anes - Eval Final PreProcedure Day of Procedure 09/30/24 07:47 Patient weight: normal Lungs: normal air movement Airway: Mallampati scale class II Neurological: alert and oriented Last oral intake: >/= 8 hours ASA classification: I Emergent: no Anesthetic plan: proceed Anesthesia type and monitoring: general GIVS and standard monitoring Results Review: All pre-operative results and documents have been reviewed as part of the pre-operative evaluation. Active w workouts, no cp or sob. Hx of rectal bleeding. Informed Consent: The patient's anesthetic plan and its attendant risks and benefits were discussed with the patient/family/POA. Questions were solicited and answers provided to the satisfaction of the patient/family/POA.
[2024-09-30] MEDS: LACTATED RINGERS 1,000 ML 150 ML IV CONT (07:55)
[2024-09-30 08:42] VITALS: BP 103/65; PULSE 86; RESP 21; O2SAT 99
[2024-09-30 08:44] LABS: BEDSIDEPREGUCG Negative (Negative)
--- NOTE | 2024-09-30 08:44 | W.PM.PROC2 ---
Procedure Note - Detailed Date of Procedure 09/30/24 Pre-op Diagnosis rectal bleeding Post-op Diagnosis Other (Grade 2 internal hemorrhoids) Procedure Performed Internal hemorrhoid rubber banding x3 Surgeon Angel Dodge, DO Anesthesia MAC Findings Prolapsing internal hemorrhoid predominantly and the right posterior and right anterior locations. Mild prolapsing internal hemorrhoid left lateral location. Estimated Blood Loss 2 Complications No immediate complications Condition Stable Disposition Same day [facility] Billing Surgery - Charge Forward: Surgery Billing
[2024-09-30 08:52] VITALS: BP 111/67; PULSE 77; RESP 19; O2SAT 100
[2024-09-30 09:02] VITALS: BP 115/81; PULSE 73; RESP 22; O2SAT 100
== END 2024-09-30 09:07 | disposition home or self-care (01) ==
PROVIDERS: PCP Family Medicine; Visit Provider Surgery
PROC: 0DJD8ZZ Inspection of Lower Intestinal Tract, Via Natural or Artificial Opening Endoscopic (ICD-10-PCS; CPT 45378; principal; 2024-09-30 08:30)
DX: K62.5 Hemorrhage of anus and rectum (principal); K57.30 Diverticulosis of large intestine without perforation or abscess without bleeding; K64.1 Second degree hemorrhoids
CPT/HCPCS: 45378; 46221; J2003; J2704; J7120

== ENCOUNTER 2025-02-23 14:46 | Outpatient (CLI) | payer OTHER, SELFPAY ==
--- OUTSIDE RECORDS SUMMARY | 2025-02-23 15:00 | XMS_ITS | Data Portability ---
Author Organization [facility] Address [address] [place] [address] Care Team Providers Care Biomedical Instrument Technician Name Role Phone PIETRO MALIK Primary Care Provider [phone] Assessment No assessment recorded. Plan of Treatment Reminders Order Date Submit Date Provider Last Modified By Organization Details Last Modified Time Details Appointments None recorded. Lab vitamin D, 25-hydroxy, total, serum 2022 023 [facility] (Lab), [address] [place], [address], 3 08:13:58 testosteron e, total, serum 2022 023 [facility] (Lab), [address] [place], [address], 3 08:13:57 CBC w/ auto diff 2022 023 [facility] (Lab), [address] [place], [address], 3 08:13:55 CMP, serum or plasma 2022 023 [facility] (Lab), [address] [place], [address], 3 08:13:56 TSH, serum or plasma 2022 023 [facility] (Lab), [address] [place], [address], 3 08:13:57 HbA1c (hemoglobin A1c), blood 2022 023 [facility] (Lab), [address], [place], [address], 08:13:55 Referral None recorded. Procedures None recorded. Surgeries None recorded. Imaging None recorded. Medication Orders bupropion HCl XL 300 mg 24 hr tablet, extended release 2022 023 [id number], [address], [place], [address], 14:53:07 Wellbutrin XL 150 mg 24 hr tablet, extended release 2022 023 [id number], [address], [place], [address], 14:44:02 Wellbutrin XL 300 mg 24 hr tablet, extended release 2022 023 [id number], [address], [place], [address], 14:45:40 Patient TargetsNo targets recorded. Patient InstructionsNo instructions recorded. Reason for Referral None Reported. Results Created Date Observation Date Name Description Value Unit Range Abnormal Flag Note LastModifiedBy Organization Detail LastModifiedTime 12/12/1912/11/2022 TESTO STERO NE, TOTAL testosterone , total 32 NG/dL 0-100 Not Available [facility] (Lab) [address], [place], [address], 12/12/2022 08:13:57 12/12/1912/11/2022 VITAM IN D, 25-OH (TOTA L D2/D3 ) vitamin D, 25-hydroxy, total 28.5 NG/mL 30.0-1 00.0 [address] [place] [address] of Defic iency : <20 ng/mL [place] stive of Insuf ficie ncy: 20-29 ng/mL [place] stive of Suffi cienc y: 30-10 0 ng/mL Sugge stive of Toxic ity: >150 ng/mL Not Available [facility] (Lab) [address], [place], [address], 12/12/2022 08:13:58 Result Notes None recorded. Procedures Surgical History Date Name Laterality Status Provider Name and Address Organization Details Recorded Time 04/04/2022 Date of Last Pap Smear completed Yisel Ware [facility] 01/22/2023 14:44:18 Imaging Results None recorded. Procedure Notes None recorded. Medical Equipment None Reported. Allergies Allergen ID Allergen Name Allergen Category Reaction Reaction Severity Criticality Documentation Date Start Date Code Code System Note Provider Name and Address Organization Details Recorded Time amoxicill in medicatio n Not available Not available Not available 12/11/2022 723 RxNorm Yisel Ware null, [facility] 14:17:38 Medications Name Sig Start [...] Not Available Not Available No t Available Wellbutrin XL 150 mg 24 hr tablet, extended release Take 1 tablet every day by oral route with meals for 7 days. 01/22 completed Not Available Not Available Not Available Wegovy 0.25 mg/0.5 mL subcutaneou s pen injector Inject by subcutane ous route. active Not Available Not Available No t Available Vitals Date Recorded Systolic And Diastolic Provider Name and Address Organization Details Last Updated DateTime 12/11/2022 122/74 mm[Hg] Jeannette El, R[facility]AD-[facility] [address], [place], [address], [facility] 12/11/2022 14:47:02 Date Recorded Body height Body mass index (BMI) Body weight Provider Name and Address Organization Details Last Updated DateTime 12/11/2022 167.64 cm 32.3 kg/m2 14213.47 g Yisel Ware [facility] 12/11/2022 14:17:25 Date Recorded Systolic And Diastolic Provider Name and Address Organization Details Last Updated DateTime 01/22/2023 130/80 mm[Hg] Jeannette El, [facility]- [address], [place], [address], [facility] 01/22/2023 14:51:46 Date Recorded Body height Body mass index (BMI) Body weight Provider Name and Address Organization Details Last Updated DateTime 01/22/2023 167.64 cm 31.8 kg/m2 67424.7 g Yisel Ware [facility] 01/22/2023 14:43:30 Social History Question Answer Notes LastModified by [employer] Details LastModified Time Tobacco Smoking Status Never Smoker Yisel Ware null, [facility] 12/11/2022 14:21:20 In The 14 Days Before Symptom Onset, [...] For COVID-19? No Information not available 12/11/2022 Sex: Unknown Functional Status Question Answer Note LastModified by [employer] Details LastModified Time Do you use any illicit or recreational drugs? No Information not available 12/11/2022 What is your level of alcohol consumption? Occasional Information not available 12/11/2022 Mental Status None recorded. Family History Relationship [...] SNOMED-CT Code Diagnosis ICD10 Code Diagnosis Note [id number] Jeannette El [facility] [address] [address] 12/11/2022 14:02:01 12/11/2022 14:59:33 Reduced libido 4147686 R68.82 Discussed Addiy, Vyleesi, Wellbutrin XL.Opts to [...] plan of care. Vitamin D deficiency 347 13087 E55.9 Adult heal th examination [id number] Z00.00 Lack or lo ss of sexual desire [id number] F52.0 [id number] ORTIZ Arredondo-[facility] [address] [address] 01/22/2023 14:37:46 01/22/2023 14:57:36 Lack or loss of sexual desire [id number] F52.0 Reduced libido 9925241 R 68.82 Patient is here today for [...] Recorded Advance Directives Directive None Recorded Payers Insurance Date Sequence Insurance Name Policy Number Policy Villarreal Covered Member ID Villarreal Member ID Guarantor Name 01/20/2023 1 [facility] (PP[facility]) [id number] M Meenakshi Gamble Mars [id number] Meenakshi Mars Notes Date Note Type [...] managed well on current SSRI Jeannette El [facility] [address], [place], [address], [facility] 12/11/2022 14:52:30 01/22/2023 text/html Here today for medication check of Wellbutrin XL. Jeannette El [facility] [address], [place], [address], [facility] 01/22/2023 14:55:34 OBGyn Episode Ob Episode Information Episode Created Date Number of Fetuses Patient Bloodtype Patient rh Status Prepregnancy Weight lbs Domestic Partner Domestic Partner Phone Father Name Cyber Ops Planner Status 12/12/19 23 1 CLOSED Fetus Data [...] Post Complications Tubal Sterilization Discharge Date Comments 1 Discharge Information Feeding Method Contraceptive Method Maternal HG B and HCT Levels
--- OUTSIDE RECORDS SUMMARY | 2025-02-23 15:00 | XMS_ITS | Encounter Summary ---
Author Organization [facility] Address [address] [facility] [place] [address] Care Team Providers Care Janitor Supervisor Name Role Phone Ishan Mims MD Primary Care Provider [phone] Encounter Details Date Type Department Care Team (Late st Contact Info) Description 02/13/2021 Lab Requisition [facility] DermPath Lab [address] [place] [id number] Ishan Mims MD [address] [place] [address] Social History Tobacco Use Types Packs/Day Years Used Date Smoking Tobacco: Never Assessed Comments No Sex and Gender Information Value Date Recorded Sex Assigned at Not on file Legal Sex Female 5:24 PM CDT Gender Identity Female 04/13/2018 7:02 PM CDT Sexual Orientation Not on file documented as of this encounter Plan of Treatment Not on file documented as of this encounter Procedures Procedure Name Priority Date/Time Associated Diagnosis Comments DERMATOPATHOLOGY Routine 02/12/2021 3:33 AM CDT documented in this encounter Results * DERMATOPATHOLOGY (02/12/2021 3:33 AM CDT) Case Report Dermatopathology Report Case: [id number] Authorizing Provider: Ishan Mims MD Collected: 02/12/2021 03:33 AM Ordering Location: [facility] DermPath Lab Received: 02/13/2021 02:53 PM Pathologist: Karo Butterfield MD Specimens: A) - Skin, left thigh B) - Skin, left upper arm 1:58 PM T DERMATOPATHOLOGY LABORATORY Final Diagnosis Specimen A. SKIN, left thigh: DERMATOFIBROMA (D23.9) Specimen B. SKIN, left upper arm: COMPOUND MELANOCYTIC NEVUS, IRRITATED (D22.62) PRESENT AT MARGIN 1 1:58 PM CDT DERMATOPATHOLOGY LABORATORY at 1358 CDT Clinical History A-B: Lesion changes 1:58 PM [...] measuring 4x3x1 mm. Jar 0. 1:58 PM [facility] DERMATOPATHOLOGY LABORATORY Microscopic Description Specimen A. SKIN, [...] specimen these histologic features may not be licensing representative of the entire lesion. Clinicopathologic correlation is recommended. 1:58 PM T DERMATOPATHOLOGY LABORATORY Disclaimer An external and internal positive and negative controls are appropriate for the histochemical, immunohistochemical and immunofluorescence stain(s) in this case (if any), except where stated explicitly. The performance characteristics of the stain(s) cited in this report were developed and its performance characteristic determined by the Dermatopathology Laboratory at [facility], directed by Dr. Nemesio Varma. These tests need not be, and therefore are not, approved by the [place] Food and Drug Administration. The tests are used for clinical purposes. Billing Codes Specimen Charges Stain Charges 95762 83061 1 1 1 1:58 PM CDT DERMATOPATHOLOGY LABORATORY Embedded Images 1:58 PM CDT DERMATOPATHOLOGY LABORATORY Pathology/Cytology TISSUE SPECIMEN FROM SKIN / Unknown 02/12/2021 3:33 AM CDT 02/13/2021 2:53 PM CDT Miscellaneous samples (specimen) TISSUE SPECIMEN FROM SKIN / Unknown 02/12/2021 3:33 AM CDT 02/13/2021 2:53 PM CDT Ishan Mims MD LAB - PATHOLOGY/CYTOLOGY ANTHONYE HAL Final Result DERMATOPATHOLOGY LABORATORY [facility] - Department of Dermatology [facility] Specialized Medicine [address] [place] [address], [address] [phone] documented in this encounter Visit Diagnoses Not on filedocumented in this encounter Care Teams Janitor Supervisor Relationship Specialty Start Date End Date Ishan Mims MD [address] [place] [address] PCP - General Family Medicine 04/13/18 documented as of this encounter
--- OUTSIDE RECORDS SUMMARY | 2025-02-23 15:00 | XMS_ITS | Clinical Summary ---
Author Organization [facility] Address [address] [place] [address] Phone Care Team Providers Care Notched Blade Loader Name Role Phone Unavailable Primary Care Provider Unavailabl e Social History Tobacco Use Types Packs/Day Years Used Date Smoking Tobacco: Never Assessed Comments Unknown Sex and Gender Information Value Date Recorded Sex Assigned at Not on file Legal Sex Female 11:20 AM TIMBER FRAMER HELPER Gender Identity Not on file Sexual Orientation Not on file Plan of Treatment Health Maintenance Due Date Last Done Comments HPV VACCINES (1 - 3-dose series) 11/04/2003 DTAP/TDAP/TD VACCINES (1 - Tdap) 11/04/2007 HEPATITIS B VACCINES (1 of 3 - 19+ 3-dose series) 09/2007 HPV/Cotest (21-29) 2009 HPV/Cotest (30-65) 2018 CERVICAL CANCER SCREENING 05/22/2020 PAP SMEAR 05/22/2020 05/22/2017 INFLUENZA VACCINE (#1) [address] [place] [address] BLUE ACCESS/TRUE BLUE PPO
--- OUTSIDE RECORDS SUMMARY | 2025-02-23 15:00 | XMS_ITS | Continuity of Care Document ---
Author Organization [facility] Address [address] [facility] [address] [facility] [address] [place] [address] Phone Care Team Providers Care Carder Blankets Name Role Phone Mariel Langston Unavailable Unavailable Advance Directives Directive Yes / No Effective Date File Name No Information Encounters Encounter Description Practice Location Reason(s) For Visit Diagnoses Date Provider Providers Copied on Encounter [facility], [address], [place], [place], [id number], [place] tel:[phone] [facility] [place] No Information [address] [facility] , [address], [place], [address], [place]. tel:[phone] Family History Family Member Type Diagnosis Age [...]
--- OUTSIDE RECORDS SUMMARY | 2025-02-23 15:01 | XMS_ITS | Clinical Summary ---
Author Organization [facility] Address [address] [facility] [place] [address] Care Team Providers Care Boilerhouse Mechanic Name Role Phone Ishan Mims MD Primary Care Provider [phone] Source Comments [facility],non-owned Affiliates and Associated Physician Practices is amultiple site organization consisting of ambulatory clinics and hospital sitesin [place], [place]. This disclosure is being madepursuant to the Care Everywhere program and may not contain all information available regarding this patient. Last updated 18.[facility] Allergies Active Allergy Reactions Criticality Noted Date Comments Amoxicillin Urticaria Medium 04/13/2018 Medications * Be aware that medications may not be up to date on this document. Alwaysverify current medications with the patient. BusPIRone HCl (BUSPAR PO) Active Active Problems No known active problems Social History Tobacco Use Types Packs/Day Years Used Date Smoking Tobacco: Never Smokeless Tobacco: Never Alcohol Use Standard Drinks/Week Comments Yes 0 (1 standard drink = 0.6 oz pur e alcohol) occasional Comments No Sex and Gender Information Value Date Recorded Sex Assigned at Not on file Legal Sex Female 5:24 PM CDT Gender Identity Female 04/13/2018 7:02 PM CDT Sexual Orientation Not on file Last Filed Vital Signs Vital Sign Reading Time Taken Comments Blood Pressure 118/72 06/28/2019 3:44 PM HOME ENERGY CONSULTANT SUPERVISOR Pulse 102 06/28/2019 3:44 PM HOME ENERGY CONSULTANT SUPERVISOR Temperature 37 C (98.6 F) 06/28/2019 3:44 PM HOME ENERGY CONSULTANT SUPERVISOR Respiratory Rate 16 06/28/2019 3:44 PM HOME ENERGY CONSULTANT SUPERVISOR Oxygen Saturation 98% 06/28/2019 3:44 PM HOME ENERGY CONSULTANT SUPERVISOR Inhaled Oxygen Concentration - - Weight 72.6 kg (160 lb) 06/28/2019 3:44 PM HOME ENERGY CONSULTANT SUPERVISOR Height 167.6 cm (5' 6) 06/28/2019 3:44 PM HOME ENERGY CONSULTANT SUPERVISOR Body Mass Index 25.82 06/28/2019 3:44 PM HOME ENERGY CONSULTANT SUPERVISOR Plan of Treatment Health Maintenance Due Date Last Done Comments HIV SCREENING 11/04/2003 HEPATITIS C SCREENING 10/30/2006 DTAP/TDAP/TD VACCINES (1 - Tdap) 11/04/2007 HEPATITIS B VACCINE (1 of 3 - 19+ 3-dose series) 11/04/2007 HPV VACCINE (1 - 3-dose SCDM series) 11/04/2015 COVID-19 VACCINE (1 - 2023-2 5 season) 2024 DEPRESSION SCREENING 08/04/2024 INFLUENZA VACCINE (#1) 2025 ZOSTER VACCINE (1 of 2) 2038 HIB VACCINE Aged Out No longer eligi ble based on patient's age to complete this topic MENINGOCOCCAL (Group B) VACC INE SHARED DECISION-MAKING Aged Out No longer eligibl e based on patient's age to complete this topic MENINGOCOCCAL GROUPS A/C/Y/W VACCINE Aged Out No longer eligible b ased on patient's age to complete this topic PNEUMOCOCCAL VACCINE Aged Out No long er eligible based on patient's age to complete this topic Insurance ANTHEM ANTHEM Care Teams Boilerhouse Mechanic Relationship Specialty Start Date End Date Ishan Mims MD [address] [place] [address] PCP - General Family Medicine 04/13/18
[2025-02-23 15:44] LABS: Hematocrit 37.0 % (37.0-47.0); Hemoglobin 12.4 g/dL (12.0-15.0); Mean Corpuscular HGB Conc 33.5 g/dl (32-36); Mean Corpuscular Hemoglobin 30.8 pg (26-34); Mean Corpuscular Volume 92.0 fl (80-100); Platelet Count Result 233 k/mm3 (150-375); Red Blood Count 4.02 M/mm3 (4.2-5.4); White Blood Count 4.3 K/mm3 (4.5-10.0)
[2025-02-23 16:06] LABS: Iron 61 ug/dL (37-170)
[2025-02-23 16:07] LABS: Albumin Level 4.4 g/dL (3.5-5.1); Anion Gap 10 mmol/L (4-12); Blood Urea Nitrogen 18 mg/dL (7-17); Calcium 9.2 mg/dL (8.4-10.2); Carbon Dioxide 24 mmol/L (22-30); Chloride 105 mmol/L (98-107); Estimated Glomerular Filt Rate 47; Glucose 85 mg/dL (65-110); Potassium 3.8 mmol/L (3.4-5.0); Sodium 139 mmol/L (137-145)
[2025-02-23 16:14] LABS: Prealbumin 26.3 mg/dL (17.6-36.0)
[2025-02-26 00:07] LABS: Vit. B1, Whole Blood 104.1 nmol/L (66.5-200.0)
== END 2025-02-23 14:47 | disposition home or self-care (01) ==
LOC: ANHLAB 14:57
PROVIDERS: PCP Family Medicine; Visit Provider Surgery Plastic and Reconstructive Surgery
DX: R63.4 Abnormal weight loss (principal)
CPT/HCPCS: 36415; 80048; 82040; 83540; 84134; 84425; 85027

== ENCOUNTER 2025-03-28 14:05 | Outpatient (CLI) | payer BC, SELFPAY ==
--- OUTSIDE RECORDS SUMMARY | 2001-06-16 10:00 | XMS_ITS | Continuity of Care Document ---
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 [address] [facility] , [address], [place], [address], [place]. tel:[phone] Family History Family Member Type Diagnosis Age At Onset No Information Payers Payer name Insurance type Covered democrat ID Authoriza tion(s) No Information Social History [...]
--- OUTSIDE RECORDS SUMMARY | 2025-03-28 14:10 | XMS_ITS | Encounter Summary ---
Author Organization [facility] Address [address] [facility] [place] [address] Care Team Providers Care Marketing Segment Manager Name Role Phone Ishan Mims MD Primary Care Provider [phone] Encounter Details Date Type Department Care Team (Late st Contact Info) Description 02/13/2021 Lab Requisition [facility] DermPath Lab [address] [place] [id number] Ishan Mims MD [address] [place] [address] Social History Tobacco Use Types [...] AM CDT) Case Report Dermatopathology Report Case: [id number] Authorizing Provider: Ishan Mims MD Collected: 02/12/2021 03:33 AM Ordering Location: [facility] DermPath Lab Received: 02/13/2021 02:53 PM Pathologist: [...] measuring 4x3x1 mm. Jar 0. 1:58 PM [facility] DERMATOPATHOLOGY LABORATORY Microscopic Description Specimen A. [...] specimen these histologic features may not be insurance claim representative of the entire lesion. Clinicopathologic correlation is recommended. 1:58 PM T DERMATOPATHOLOGY LABORATORY Disclaimer An external and internal positive and negative controls are appropriate for the histochemical, immunohistochemical and immunofluorescence stain(s) in this case (if any), except where stated explicitly. The performance characteristics of the stain(s) cited in this report were developed and its performance characteristic determined by the Dermatopathology Laboratory at [facility], directed by Dr. Nemesio Varma. These tests need not be, and therefore are not, approved by the [place] Food and Drug Administration. The tests are used for clinical purposes. Billing Codes Specimen Charges Stain Charges 50802 [id number] 1 1 1 1:58 PM CDT DERMATOPATHOLOGY LABORATORY Embedded Images 1:58 PM CDT DERMATOPATHOLOGY LABORATORY Pathology/Cytology TISSUE SPECIMEN FROM SKIN / Unknown 02/12/2021 3:33 AM CDT 02/13/2021 2:53 PM CDT Miscellaneous samples (specimen) TISSUE SPECIMEN FROM SKIN / Unknown 02/12/2021 3:33 AM CDT 02/13/2021 2:53 PM CDT Ishan Mims MD LAB - PATHOLOGY/CYTOLOGY ANTHONYE HAL Final Result DERMATOPATHOLOGY LABORATORY [facility] - Department of Dermatology [facility] Specialized Medicine [address] [place] [address], [address] [phone] documented in this encounter Visit Diagnoses Not on filedocumented in this encounter Care Teams Marketing Segment Manager Relationship Specialty Start Date End Date Ishan Mims MD [address] [place] [address] PCP - General Family Medicine 04/13/18 documented as of this encounter
--- OUTSIDE RECORDS SUMMARY | 2025-03-28 14:10 | XMS_ITS | Clinical Summary ---
Author Organization [facility] Address [address] [place], [place] [address] Care Team Providers Care Python Programmer Name Role Phone Ishan Mims MD Primary Care Provider [phone] Encounters Date Type Department Care Team Description 03/09/2025 3:20 PM CDT - 03/09/2025 11:59 PM CDT Hospital Encounter [place] [id number] Encounter for screening mammogram for malignant neoplasm of breast Discharge Disposition: Discharge to home or self care from Last 3 Months Social History Tobacco Use Types Packs/Day Years Used Date Smoking Tobacco: Never Assessed Comments No Sex and Gender Information Value Date Recorded Sex Assigned at Not on file Legal Sex Female 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 Gender Identity Not on file Sexual Orientation Not on file Obstetrics History Para Term AB IAB SAB Ectopic Multiple Livin g Live Births 1 1 Date Outcome GA Total Labor Labor/2nd/3rd Weight Sex Type Anes PTL Demetria A1 A5 Name Clin Last Filed Vital Signs Vital Sign Reading Time Taken Comments Blood Pressure - - Pulse - - Temperature - - Respiratory Rate - - Oxygen Saturation - - Inhaled Oxygen Concentration - - Weight 56.7 kg (125 lb) 03/09/2025 3:54 PM CDT Height 167.6 cm (5' 6) 03/09/2025 3:54 PM CDT Body Mass Index 20.18 03/09/2025 3:54 PM CDT Plan of Treatment Health Maintenance Due Date Last Done Comments Cervical Cancer Screening 1988 Depression Screening 1988 Hepatitis C Screening 1988 DTaP/Tdap/Td Vaccine (1 - Tdap) 11/04/1999 Varicella Vaccines (1 of 2 - 13+ 2-dose series) 2001 Hepatitis B Screening 2006 Regular Well Visit/Exam 18-64 2006 HPV Vaccines (1 - 3-dose SCD M series) 11/04/2015 Covid-19 Vaccine (3 - 2023-2 5 season) 2024 04/19/2021, 03/29/2021 Influenza Vaccine (#1) 2025 05/13/2016 Pneumococcal vaccine <65 Aged Out No longer eligible based on patient's age to complete this topic Procedures Procedure Name Priority Date/Time Associated Diagnosis Comments SCREENING MAMMOGRAM BILATERAL W REUBEN Schedule Routine, Read Routine (OP Routine) 03/09/2025 3:51 PM CDT Encounter for screening mammogram for malignant neoplasm of breast from Last 3 Months Results * Screening Mammogram Bilateral W Reuben (03/09/2025 3:51 PM CDT) Anatomical Region Laterality Modality Breast Bilateral Mammography Impressions 03/09/2025 4:11 PM CDT Bilateral No evidence of malignancy in either breast. OVERALL BI-RADS FINAL ASSESSMENT: 1 - Negative RECOMMENDATION: Recommend bilateral annual screening mammography. Consider supplemental screening with breast MRI every 1-2 years given extremely dense breast tissue. If breast MRI cannot be performed, consider contrast-enhanced mammography as an alternative. Narrative 03/09/2025 4:11 PM CDT EXAMINATION: Screening Mammogram Bilateral W Reuben: 03/09/2025 COMPARISON: TECHNIQUE: Mammography was performed with 2D and 3D digital breast tomosynthesis (DBT) images. CAD was utilized. BREAST PARENCHYMAL COMPOSITION: The breasts are extremely dense, which lowers the sensitivity of mammography. FINDINGS: Bilateral There is no suspicious mass, calcification, or architectural distortion in either breast. Elian Alfonso MD IMG MAMMO PROCEDURES Latasha williamson Result from Last 3 Months Insurance [facility] ACC[facility] Care Teams Python Programmer Relationship Specialty Start Date End Date Ishan Mims MD [address] [place] [address] PCP - General Family Medicine 02/25/25
--- OUTSIDE RECORDS SUMMARY | 2025-03-28 14:10 | XMS_ITS | Clinical Summary ---
Author Organization [facility] Address [address] [place] [phone] Phone Care Team Providers Care Endless Belt Finisher Name Role Phone Unavailable Primary Care Provider Unavailabl e Social History Tobacco Use Types Packs/Day Years Used Date Smoking Tobacco: Never Assessed Comments Unknown Sex and Gender Information Value Date Recorded Sex Assigned at Not on file Legal Sex Female 11:20 AM LOOP CUTTER Gender Identity Not on file Sexual Orientation Not on file Plan of Treatment Health Maintenance Due Date Last Done Comments DTAP/TDAP/TD VACCINES (1 - Tdap) 11/04/2007 HEPATITIS B VACCINES (1 of 3 - 19+ 3-dose series) 09/2007 HPV/Cotest (21-29) 2009 HPV VACCINES (1 - 3-dose SCDM series) 11/04/2015 HPV/Cotest (30-65) 2018 CERVICAL CANCER SCREENING 05/22/2020 PAP SMEAR 05/22/2020 05/22/2017 INFLUENZA VACCINE (#1) 2025 Insurance BLUE ACCESS/TRUE BLUE PPO
--- OUTSIDE RECORDS SUMMARY | 2025-03-28 14:10 | XMS_ITS | Clinical Summary ---
Author Organization [facility] Address [address] [facility] [place] [address] Care Team Providers Care Forensics Analyst Name Role Phone Ishan Mims MD Primary Care Provider [phone] Source Comments [facility],non-owned Affiliates and Associated Physician Practices is amultiple site organization consisting of ambulatory clinics and hospital sitesin [place], [place], [place] and [place]. This disclosure is being madepursuant to the Care Everywhere program and may not contain all information available regarding this patient. Last updated 18.[facility] Allergies Active Allergy Reactions Criticality Noted Date [...] Comments Blood Pressure 118/72 06/28/2019 3:44 PM WARPER FIXER Pulse 102 06/28/2019 3:44 PM WARPER FIXER Temperature 37 C (98.6 F) 06/28/2019 3:44 PM WARPER FIXER Respiratory Rate 16 06/28/2019 3:44 PM WARPER FIXER Oxygen Saturation 98% 06/28/2019 3:44 PM WARPER FIXER Inhaled Oxygen Concentration - - Weight 72.6 kg (160 lb) 06/28/2019 3:44 PM WARPER FIXER Height 167.6 cm (5' 6) 06/28/2019 3:44 PM WARPER FIXER Body Mass Index 25.82 06/28/2019 3:44 PM WARPER FIXER Plan of Treatment Health Maintenance Due Date [...] this topic Insurance ANTHEM ANTHEM Care Teams Forensics Analyst Relationship Specialty Start Date End Date Ishan Mims MD [address] [place] [address] PCP - General Family Medicine 04/13/18
[2025-03-28 14:57] LABS: Hematocrit 35.4 % (37.0-47.0); Hemoglobin 11.9 g/dL (12.0-15.0); Immature Granulocyte Percent A 0.2 % (0-0.5); Immature Reticulocyte Fraction 4.4 % (3.0-15.9); Lymphocytes Absolute Auto 1.34 K/mm3 (0.9-3.2); Mean Corpuscular HGB Conc 33.6 g/dl (32-36); Mean Corpuscular Hemoglobin 31.4 pg (26-34); Mean Corpuscular Volume 93.4 fl (80-100); Nucleated Red Blood Cells Absolute Auto 0.000 K/mm3 (0.0-0.012); Nucleated Red Blood Cells Perc 0.0 % (0.0-0.2); Platelet Count Result 197 k/mm3 (150-375); Red Blood Count 3.79 M/mm3 (4.2-5.4); Reticulocyte Hemoglobin Conten 34.9 pg (28.2-36.6); Reticulocytes Absolute 0.03 10^6/uL (0.02-0.10); White Blood Count 4.1 K/mm3 (4.5-10.0)
[2025-03-28 15:43] LABS: Alanine Aminotransferase 22 U/L (6-35); Albumin Level 4.0 g/dL (3.5-5.1); Alkaline Phosphatase 35 U/L (38-126); Anion Gap 6 mmol/L (4-12); Aspartate Amino Transferase 30 U/L (14-36); Bilirubin,Total 0.4 mg/dL (0.2-1.3); Blood Urea Nitrogen 14 mg/dL (7-17); Calcium 8.9 mg/dL (8.4-10.2); Carbon Dioxide 28 mmol/L (22-30); Chloride 104 mmol/L (98-107); Estimated Glomerular Filt Rate > 60; Glucose 81 mg/dL (65-110); Potassium 4.0 mmol/L (3.4-5.0); Sodium 138 mmol/L (137-145); Total Protein 6.4 g/dL (6.3-8.2)
[2025-03-28 15:49] LABS: Iron 57 ug/dL (37-170)
[2025-03-28 16:07] LABS: Percent Iron Saturation 21 % (20-50)
[2025-03-28 16:39] LABS: Ferritin 25.40 ng/mL (6.24-137)
[2025-03-28 16:55] LABS: Vitamin B12 326.0 pg/mL (239-931)
== END 2025-03-28 14:06 | disposition home or self-care (01) ==
LOC: ANHLAB 14:05
PROVIDERS: PCP Family Medicine
DX: N28.9 Disorder of kidney and ureter, unspecified (principal); D72.9 Disorder of white blood cells, unspecified; L65.9 Nonscarring hair loss, unspecified; E66.1 Drug-induced obesity; E55.9 Vitamin D deficiency, unspecified
CPT/HCPCS: 36415; 80053; 82306; 82607; 82728; 82746; 83540; 83550; 85025; 85046

== ENCOUNTER 2025-04-28 01:51 | Day surgery (SDC) | payer OTHER, SELFPAY ==
--- OUTSIDE RECORDS SUMMARY | 2001-06-16 10:00 | XMS_ITS | Continuity of Care Document ---
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 [address] [facility] [address] [facility] , [address], [place], [address], [place]. tel:[phone] Family History Family Member Type Diagnosis Age At Onset No Information Payers Payer name Insurance type Covered alliance party ID Authoriza tion(s) No Information Social History Type Description Quantity Date Captured Comments Sex Female Smoking Status No Information Chief Complaint And Reason For Visit No Information Reason For Referral Reason For Referral No Information History Of Present Illness Encounter Date Complaint History Of Prese nt Illness No Information Functional Status Date Functional Assessmen t No Information Instructions Date Instruction Additional Infor mation No Information Assessments Type Assessment Date No Information Patient Care Teams Name Effective Dates (start - stop) Status Members No Information
--- NOTE | 2025-04-15 10:13 | SUR.PREOP ---
Report to the Outpatient Waiting Room, entrance under the green pavilion located off [facility], at time _0830_ on date _04/28/25_. Planned Procedure Time: _1030_.? Time changes happen often and if your time is changed the preop area will call you the afternoon before. - You and your visitor will be asked to self-screen and do not enter if you have any COVID symptoms. Please call surgeon if you need to reschedule. - A mask is optional within the hospital at this time. Patients may have clear liquids (water, carbonated beverages, clear teas, apple juice) until 3 hours prior to surgery with a maximum of 20 ounces. - No food from midnight until time of surgery and no smoking, or chewing tobacco (or any form of nicotine). No chewing gum, candy or mints. Take only the following medications with a SIP of water on the morning of surgery: _BUPROPION_ DO NOT STOP ANY OF YOUR OTHER PRESCRIPTION MEDICATIONS PRIOR TO SURGERY EXCEPT THE FOLLOWING: Hold all vitamins and supplements for 3 days per anesthesiologist. Medications to discontinue per physician _NA_ Date to take last dose_NA_ Please no make-up, nail portuguese, hairspray, perfume, deodorant, or body powder the day of surgery.? No jewelry (including any body piercings) or valuables the day of surgery, leave them at home.? Please take a shower or bath the night before, or the morning of, surgery with an antibacterial soap.? Wear comfortable, loose fitting clothing.? Children are encouraged to wear pajamas. - Jewelry must be removed prior to entering the operating room.? Rings and piercings that are not removed may be cut off. - The hospital will not accept responsibility for valuables.? - Please leave all valuables, including medications, at home the day of surgery. If you are going home after surgery, a licensed delivery route driver must drive you home.? - NO public transportation without another adult if you receive anesthesia. - We recommend that an adult stay with you for 24 hours following discharge. - We also recommend that you do not drive, make important decision, drink alcoholic beverages, or take any drugs that were not prescribed by your health care provider for at least 24 hours after your discharge time. Follow any additional instructions given to you from your surgeon. Telephone instructions given to _SU_and asked if any additional questions and then verbalized understanding. Patient advised to call surgeon office or pre surgery nurse liaison [phone] if any additional questions.
[2025-04-15 10:20] VITALS: BMI 21.0
[2025-04-28] VITALS (8 sets, daily range): BP systolic 102–133; BP diastolic 61–92; PULSE 56–103; RESP 14–18; TEMP 36.9–37.1; O2SAT 100
--- OUTSIDE RECORDS SUMMARY | 2025-04-28 01:54 | XMS_ITS | Clinical Summary ---
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
--- OUTSIDE RECORDS SUMMARY | 2025-04-28 01:54 | XMS_ITS | Clinical Summary ---
Author Organization [facility] Address [address] [facility] [place] [address] Care Team Providers Care Social Sciences Instructor Name Role Phone Ishan Mims MD Primary Care Provider [phone] Source Comments [facility],non-owned Affiliates and Associated Physician Practices is amultiple site organization consisting of ambulatory clinics and hospital sitesin [place], [place], [place] and [place]. This disclosure is being madepursuant to the Care Everywhere program and may not contain all information available regarding this patient. Last updated 18.[facility] Allergies Active Allergy Reactions Criticality Noted Date [...] Comments Blood Pressure 118/72 06/28/2019 3:44 PM COUNTER TOP MAKER Pulse 102 06/28/2019 3:44 PM COUNTER TOP MAKER Temperature 37 C (98.6 F) 06/28/2019 3:44 PM COUNTER TOP MAKER Respiratory Rate 16 06/28/2019 3:44 PM COUNTER TOP MAKER Oxygen Saturation 98% 06/28/2019 3:44 PM COUNTER TOP MAKER Inhaled Oxygen Concentration - - Weight 72.6 kg (160 lb) 06/28/2019 3:44 PM COUNTER TOP MAKER Height 167.6 cm (5' 6) 06/28/2019 3:44 PM COUNTER TOP MAKER Body Mass Index 25.82 06/28/2019 3:44 PM COUNTER TOP MAKER Plan of Treatment Health Maintenance Due Date Last Done Comments HIV SCREENING 11/04/2003 HEPATITIS C SCREENING 10/30/2006 DTAP/TDAP/TD VACCINES (1 - Tdap) 11/04/2007 HEPATITIS B VACCINE (1 of 3 - 19+ 3-dose series) 11/04/2007 HPV VACCINE (1 - 3-dose SCDM series) 11/04/2015 DEPRESSION SCREENING 08/04/2024 COVID-19 VACCINE (1 - 2023-2 5 season) 2025 INFLUENZA VACCINE (#1) 2025 ZOSTER VACCINE (1 [...] this topic Insurance ANTHEM ANTHEM Care Teams Social Sciences Instructor Relationship Specialty Start Date End Date Ishan Mims MD [address] [place] [address] PCP - General Family Medicine 04/13/18
--- OUTSIDE RECORDS SUMMARY | 2025-04-28 01:54 | XMS_ITS | Encounter Summary ---
Author Organization [facility] Address [address] [place] [address] Care Team Providers Care Resident Program Specialist Name Role Phone Ishan Mims MD Primary Care Provider [phone] Encounter Details Date Type Department Care Team (Late st Contact Info) Description 02/13/2021 Lab Requisition [facility] [address] [place] [id number] Ishan Mims MD [address] [place] [address] Social History Tobacco Use Types [...] AM CDT) Case Report Dermatopathology Report Case: [id number] Authorizing Provider: Ishan Mims MD Collected: 02/12/2021 03:33 AM Ordering Location: [facility] Received: 02/13/2021 02:53 PM Pathologist: [...] measuring 4x3x1 mm. Jar 0. 1:58 PM [facility] DERMAT[facility]ORATORY Microscopic Description Specimen [...] specimen these histologic features may not be sales and merchandising representative of the entire lesion. Clinicopathologic correlation is recommended. 1:58 PM T DERMATOPATHOLOGY LABORATORY Disclaimer An external and internal positive and negative controls are appropriate for the histochemical, immunohistochemical and immunofluorescence stain(s) in this case (if any), except where stated explicitly. The performance characteristics of the stain(s) cited in this report were developed and its performance characteristic determined by the Dermatopathology Laboratory at [facility], directed by Dr. Nemesio Varma. These tests need not be, and therefore are not, approved by the [place] Food and Drug Administration. The tests are used for clinical purposes. Billing Codes Specimen Charges Stain Charges 86463 91250 1 1 1 1:58 PM CDT DERMATOPATHOLOGY LABORATORY Embedded Images 1:58 PM CDT DERMATOPATHOLOGY LABORATORY Pathology/Cytology TISSUE SPECIMEN FROM SKIN / Unknown 02/12/2021 3:33 AM CDT 02/13/2021 2:53 PM CDT Miscellaneous samples (specimen) TISSUE SPECIMEN FROM SKIN / Unknown 02/12/2021 3:33 AM CDT 02/13/2021 2:53 PM CDT Ishan Mims MD LAB - PATHOLOGY/CYTOLOGY ANTHONYE HAL Final Result DERMATOPATHOLOGY LABORATORY [facility] - Department of Dermatology [facility] Specialized Medicine [address] [place] [address], [address] [phone] documented in this encounter Visit Diagnoses Not on filedocumented in this encounter Care Teams Resident Program Specialist Relationship Specialty Start Date End Date Ishan Mims MD [address] [place] [address] PCP - General Family Medicine 04/13/18 documented as of this encounter
--- OUTSIDE RECORDS SUMMARY | 2025-04-28 01:54 | XMS_ITS | Clinical Summary ---
Author Organization [facility] Address [address] [place], [place] [id number] Care Team Providers Care Hospital Supervisor Name Role Phone Ishan Mims MD Primary Care Provider Encounters Date Type Department Care Team Description 03/09/2025 3:20 PM CDT - 03/09/2025 11:59 PM CDT Hospital Encounter [place] [id number] Encounter for screening mammogram for malignant neoplasm of breast Discharge Disposition: Discharge to home or self care from Last 3 Months Social History Tobacco Use Types Packs/Day Years Used Date Smoking Tobacco: Never Assessed Comments No Sex and Gender Information Value Date Recorded Sex Assigned at Not on file Legal Sex Female 11:19 AM [employer] Gender Identity Not on file Sexual Orientation [...] 3-dose SCD M series) 11/04/2015 Covid-19 Vaccine ( - 2024-2 6 season) 2025 04/19/2021, 03/29/2021 Influenza Vaccine (#1) 2025 05/13/2016 [...] [email or web address] Result from Last 3 Months Insurance [employer] Care Teams Hospital Supervisor Relationship Specialty Start Date End Date Ishan Mims MD [address] [place] [address] PCP - General Family Medicine 02/25/25
[2025-04-28] MEDS: LACTATED RINGERS 1,000 ML 30 ML IV CONT ×2 (08:50→11:27)
[2025-04-28] MEDS: TRANEXAMIC ACID 1,000MG/ISO100 1,000 MG/100 ML BAG 200 MG IVPB (08:52)
--- NOTE | 2025-04-28 08:57 | WPDANESEPPF ---
Anes - Initial Pre Proc Eval Procedure: Operation Date: 04/28/25 10:30 Proposed Procedures p Bilateral Breast Augmentation - Elian Alfonso MD Date/Time: 04/28/25 08:57 Surgeon: Elian Alfonso MD Pre Op Diagnosis: Micromastia Patient Data Age: 34 Gender: F Height: 1.68 m Weight: 59.09 kg Allergies Allergy/AdvReac Type Severity Reaction Status Date / Time amoxicillin Allergy Unknown Hives Verified 04/15/25 10:11 Home Medications ?Medication ?Instructions ?Recorded ?Confirmed ?Type bupropion HCl 300 mg 24 hr tablet, 300 mg PO QAM #90 tabs 11/15/24 04/15/25 Rx extended release (Wellbutrin XL) Patient hx anesthesia problems: none Family hx anesthesia problems: none Results Review: All pre-operative results and documents have been reviewed as part of the pre-operative evaluation. [facility] Past Medical History Medical History Weight loss BMI 30.0-30.9,adult BMI 31.0-31.9,adult Low libido Tinea pedis BMI 32.0-32.9,adult BMI 33.0-33.9,adult Pain in right arm BMI 34.0-34.9,adult (normal spontaneous vaginal delivery) IUP (intrauterine ), incidental Right ankle injury Fatigue Conjunctivitis Otitis media Surgical History Surgical History History of banding of hemorrhoid 09/30/24 Internal hemorrhoid rubber banding x3 Dr. Dodge Hx of [facility] 2022 Family History Family History Father Hypertension Mother COVID-19 Sibling Hypertension COVID-19 Social History Social History Smoking status: Never smoker Second hand tobacco smoke exposure: No Alcohol intake: current Drinks per week: 4 Substance use: never Substance use type: does not use Do You Feel Safe in your Home?: Yes Lack of Transportation: No Lack of Food: Never True Current Housing: I Have Housing Concerned About Future Housing: No Difficulty Paying Gas/Electric Bills: No Difficulty Paying for Meds: No Currently Unemployed: No Education: High School Diploma/GED Difficulty w/ Childcare or Family Care: No Living arrangements: with family Additional living arrangements comments: boyfriend and son Occupation/Education: occupation 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 Gender identity (if verbalized by the patient): Female Sexual Orientation (if Verbalized by the Patient): Straight or Heterosexual Spiritual care concerns: No Agree to blood products: Yes Anes - Eval Final PreProcedure Day of Procedure 04/28/25 08:57 Patient weight: normal Heart: regular rate and rhythm Lungs: clear to auscultation Airway: Mallampati scale class II Neurological: alert and oriented Last oral intake: >/= 8 hours ASA classification: I Emergent: no Anesthetic plan: proceed Anesthesia type and monitoring: general LMA and standard monitoring Results Review: All pre-operative results and documents have been reviewed as part of the pre-operative evaluation. Informed Consent: The patient's anesthetic plan and its attendant risks and benefits were discussed with the patient/family/POA. Questions were solicited and answers provided to the satisfaction of the patient/family/POA.
[2025-04-28] MEDS: SCOPOLAMINE 1 MG PATCH 1 PATCH TRANSDERM (09:24)
[2025-04-28 09:38] LABS: BEDSIDEPREGUCG Negative (Negative)
--- NOTE | 2025-04-28 10:13 | WPDHPUPDATE1 ---
History and Physical Update Update Date/Time: 04/28/25 10:13 History and Physical has been reviewed, including an updated exam of the patient. There are NO changes in the patient's condition. Risks, benefits, and alternatives have been discussed and questions answered. Patient agrees to proceed with procedure.
--- NOTE | 2025-04-28 10:13 | W.PM.PROC2 ---
Procedure Note - Detailed Date of Procedure 04/28/25 Pre-op Diagnosis Micromastia Post-op Diagnosis Same Procedure Performed Bilateral breast augmentation Surgeon Elian Alfonso MD Anesthesia General Findings Bilateral Tomasa Dennis SoftTouch 385cc Dual Plane 1 Right: REF# [id number] SN [id number] Left: REF# [id number] SN [id number] Description of Procedure She is here today for bilateral breast augmentation. Previously and again today the risks, benefits, alternatives were discussed in extensive detail. I wanted her to be very realistic about the risks involved as well as expectations. We discussed aftercare and what to monitor for. Made sure answered all of her questions to her satisfaction today and consent was obtained. Marked in the preoperative holding area with their verification. The patient was taken to the operating room placed supine on the operating table. Anesthesia was provided by anesthesiology. A surgical time-out was taken. We cleansed the skin and 1% lidocaine and 0.25% Marcaine with epinephrine was used anesthetize as a field block. She was prepped and draped in a standard sterile fashion. Tegaderm nipple Desir were placed. A 15 blade used to make an incision along the inframammary fold. Dissection was continued at 45 degree angle until the chest wall as identified. I incised the pectoralis major along its inferior border and completely released the inferior border leaving the medial border intact. I created a subpectoral pocket in the appropriate dimensions based on our preoperative planning for the implant. I then copiously irrigated with saline solution and verified a strict hemostasis. Next the use a triple antibiotic and Betadine containing solution to irrigate the pocket. I washed my gloves with the triple antibiotic and Betadine solution. We washed the implant immediately upon opening it with this solution and only opened it when we needed it. I used implant funnel and no-touch technique. The implant was introduced into the pocket using the funnel. Having verified positioning of the implant this was closed using 2-0 PDS followed by 3-0 Monocryl in a running subcuticular 4-0 Monocryl followed by tissue glue. Fluffs and surgical bra were placed. Patient was awoke and taken to PACU without difficulty. All instrument sponge counts were correct at the end of the case. Estimated Blood Loss 20 Drains No Packing No Pathology None sent Complications No immediate complications Condition Stable Disposition PACU
[2025-04-28] MEDS: ceFAZolin 2 GM in SODIUM CHLORIDE 0.9% IV 50 ML 100 ML IVPB (10:30)
[2025-04-28] MEDS: NACL 0.9% IRRIG POUR BOTTLE 900 ML, GENTAMICIN SULFATE INJ 160 MG, CLINDAMYCIN PHOS INJ... IRRIGATION (10:51)
[2025-04-28] MEDS: LIDO 1%/EPINEPHRINE 1:100,000 50 ML VIAL 30 ML INFILTRATE (11:04)
[2025-04-28] MEDS: fentaNYL CITRATE INJ (*CRX) 100 MCG/2 ML VIAL 25 MCG IV PUSH ×2 (12:03→12:13)
[2025-04-28] MEDS: ONDANSETRON INJ 4 MG/2 ML VIAL IV PUSH (12:40)
== END 2025-04-28 13:39 | disposition home or self-care (01) ==
PROVIDERS: PCP Family Medicine; Visit Provider Surgery Plastic and Reconstructive Surgery
PROC: (CPT 19325; principal; 2025-04-28 10:30)
DX: Z41.1 Encounter for cosmetic surgery (principal); L57.4 Cutis laxa senilis; N64.82 Hypoplasia of breast; R53.83 Other fatigue; Z98.890 Other specified postprocedural states
CPT/HCPCS: 19325; J0690; A9270; J1100; J1171; J1200; J1580; J2003; J2004; J2250; J2405; J2704; J3010; J7120